=== PATIENT | male | born 1985 | race Caucasian/White ===

== ENCOUNTER → 2017-07-02 16:42 | Outpatient (CLI) | payer MEDICARE, MEDICAID, SELFPAY ==
[2017-07-02 17:07] LABS: Basophils % 0.4 % (0.1-2.0); Eosinophils % 0.9 % (0.1-12.0); Hematocrit 41.2 % (42.0-52.0); Hemoglobin 14.3 g/dL (14.1-18.0); Lymphocytes # 1.4 K/mm3 (0.7-4.5); Mean Corpuscular HGB Conc 34.7 g/dL (31.8-35.4); Mean Corpuscular Hemoglobin 30.7 pg (27.0-31.2); Mean Corpuscular Volume 88.6 fl (80-94); Mean Platelet Volume 7.2 fl (7.4-10.4); Monocytes # 0.3 K/mm3 (0.1-1.0); Monocytes % 5.6 % (1.7-9.3); Neutrophils # 3.4 K/mm3 (1.8-7.8); Neutrophils % 66.1 % (37.0-80.0); Platelet Count 202 K/mm3 (142-424); Red Blood Count 4.66 M/mm3 (4.60-6.20); Red Cell Distribution Width 12.6 % (11.5-17.5); White Blood Count 5.1 K/mm3 (4.8-10.8)
[2017-07-02 19:20] LABS: Alanine Aminotransferase 33 U/L (12-78); Albumin Level 4.2 gm/dL (3.4-5.0); Albumin/Globulin Ratio 1.2 (1.1-1.8); Alkaline Phosphatase 75 U/L (46-116); Anion Gap 12.5 mEq/L (5-15); Aspartate Amino Transferase 24 U/L (15-37); Bilirubin,Total 0.4 mg/dL (0.2-1.0); Blood Urea Nitrogen 8 mg/dL (7-18); Carbon Dioxide 29 mmol/L (21.0-32.0); Chloride 104 mmol/L (98-107); Chol/HDL Ratio 6.6 (1-3.5); Cholesterol 243 mg/dL (140-200); Creatinine,Serum 0.93 mg/dL (0.70-1.30); Estimated Glomerular Filt Rate 95 ml/min (>60); GFR (African American) 115 ML/MIN (>60); Globulin 3.4 gm/dl (1.3-3.2); Glucose 93 mg/dL (74-106); HDL Cholesterol 37 mg/dL (27-67); LDL Cholesterol 163 mg/dL (0-130); Potassium 4.5 mmoL/L (3.5-5.1); Sodium 141 mmol/L (136-145); Total Protein,Serum 7.6 gm/dL (6.4-8.2); Triglycerides 217 mg/dL (30-200); VLDL Cholesterol 43 mg/dL (0-40)
[2017-07-02 19:40] LABS: Amphetamine/Metha Screen,Urine Negative ng/mL (<1000); Barbiturates Screen,Urine Negative ng/mL (<200); Benzodiazepines Screen,Urine Positive ng/mL (200); Cannabinoid Screen,Urine Negative ng/mL (<50); Cocaine Screen,Urine Negative ng/g (<300); Methadone Screen,Urine Negative ng/mL (<300); Opiate Screen,Urine Negative ng/mL (<300); Phencyclidine Screen,Urine Negative ng/mL (<25)
[2017-07-02 19:45] LABS: Thyroid Stimulating Hormone 12.52 uIU/ml (0.358-3.740)
== END ==
PROVIDERS: Visit Provider Nurse Practitioner Psychiatric/Mental Health
DX: F20.0 Paranoid schizophrenia (principal); Z79.899 Other long term (current) drug therapy
CPT/HCPCS: 36415; 80053; 80061; 80305; 84443; 85025

== ENCOUNTER 2019-01-12 15:00 | Outpatient (RCR) | payer OTHER, SELFPAY | END 2019-01-12 15:05 | disposition home or self-care (01) | LOC: PT 15:00 | PROVIDERS: Visit Provider Pediatrics | DX: R29.898 Other symptoms and signs involving the musculoskeletal system (principal) | CPT/HCPCS: 97010; 97014; 97035; 97110; 97140; 97163; G0283 ==

== ENCOUNTER 2020-07-02 15:32 | Emergency (ER) | payer MEDICARE, MEDICAID, SELFPAY ==
[2020-07-02 15:47] VITALS: BP 144/83; PULSE 98; RESP 14; TEMP 37.4; O2SAT 99; BMI 26.6
--- NOTE | 2020-07-02 15:54 | HMH.EDUTC ---
[facility] [place] Clinical Impression: Viral syndrome, Exposure to COVID-19 virus Disposition: Home, Self-Care Condition on Discharge: Good Instructions: Preventing the Spread of Coronavirus Discharge Instructions Additional Instructions: Drink plenty of fluids. Take tylenol for pain or fever. Return if you begin to have difficulty breathing. Follow up with your regular doctor. GO TO THE ER FOR ANY WORSENING SYMPTOMS Prescriptions: Ondansetron [Zofran 4mg ODT] 4 mg PO Q8HP PRN #9 tab.rapdis PRN Reason: Nausea Transmission Status: Received by [facility] #[id number] Referrals: Quyen Jeffrey [Primary Care Provider] - Forms: Work/School Release Time of Disposition: 15:56 Medical Decision Making - Medical Records Medical records reviewed: No: I reviewed the patient's medical records. - Jaylen Inquiry Pt receiving controlled substance: No Vital Signs: 07/02/20 15:47 07/02/20 16:01 Temperature 99.3 F 99.3 F Temperature Source Tympanic Tympanic Pulse Rate 98 H Pulse Rate [Right Brachial] 98 H Respiratory Rate 14 14 Blood Pressure 144/83 H Blood Pressure [Right Arm] 144/83 H Blood Pressure Mean [Right Arm] 103 Blood Pressure Source Automatic Cuff Blood Pressure Source [Right Arm] Automatic Cuff Blood Pressure Position Sitting Blood Pressure Position [Right Arm] Sitting 02 Sat by Pulse Oximetry 99 Oxygen Delivery Method Room Air Room Air Orders (Tests/Meds): ORDERS Category Date Time Status Covid-19 Nasal PCR ([facility]) Routine Lab 07/02/20 15:45 Received [facility] [place] - General Stated complaint: covid test Time Seen by Provider: 07/02/20 15:54 Mode of Arrival: Ambulatory Source of Information: Patient Limitations: No Limitations Description of Symptoms (Recalled from Triage Doc. by RN): Covid test HEENT Symptoms (Recalled from RN notes): No Resp Symptoms (Recalled from RN notes): No Skin Symptoms (Recalled from RN notes): No MS Symptoms (Recalled from RN notes): No Functional Status (Recalled from RN notes): wnl - History of Present Illness Provider Complaint: He states that he was exposed to covid about 3 days ago. He has had some nausea and some chilling, but no other symptoms. - Related Data Home Medications Medication Instructions Recorded Confirmed Buspirone HCl [Buspar 10mg 10 mg PO TID 11/28/17 11/28/17 tablet] Omeprazole [Omeprazole 20mg 20 mg pe PO DAILY 11/28/17 11/28/17 Capsule] Quetiapine Fumarate 600 mg PO DAILY 11/28/17 11/28/17 Trazodone HCl 150 mg PO DAILY 11/28/17 11/28/17 Previous Rx's Medication Instructions Recorded Amoxicillin [Amoxicillin 875MG Tab] 875 mg PO BID #20 tab 01/14/18 Ibuprofen [Ibuprofen 800mg 800 mg PO Q8HP PRN #14 tab 11/11/18 Tablet] Ondansetron [Zofran 4mg ODT] 4 mg PO Q8HP PRN #9 tab.rapdis 07/02/20 Allergies Allergy/AdvReac Type Severity Reaction Status Date / Time acetaminophen [From Tylenol] AdvReac Verified 11/28/17 23:46 - Worker's Comp Is this a Worker's Comp case?: No [facility] History - Hepatitis A Screen Drug use history?: No High risk sexual behaviors?: No History of sexually transmitted infection?: No Currently employed?: No Childcare worker?: No Do you have indoor plumbing?: Yes Do you have electricity?: Yes Attestation statement:: This patient has been screened for Hepatitis A risk factors. I have reviewed the patient's past medical history: Yes Medical History: Denies:: Cancer, Diabetes Mellitus Type 1, Diabetes Mellitus Type 2, Hypertension, MRSA Other Surgeries: Yes: No Previous Surgery Amputation: No Fractures: No - Social History Smoking Status: Never smoker Alcohol Intake: never Occupational Status: unemployed ROS Obtained: Yes All systems reviewed & no additional complaints - Constitutional Constitutional: Reports system reviewed and no additional complaints, except as docu - Eyes Eyes: Reports system reviewed and no additional c
[2020-07-02 16:01] VITALS: BP 144/83; PULSE 98; RESP 14; TEMP 37.4; O2SAT 99
== END 2020-07-02 16:06 | disposition home or self-care (01) ==
PROVIDERS: Emergency Provider Nurse Practitioner Family; PCP Pediatrics
DX: Z20.822 Contact with and (suspected) exposure to COVID-19 (principal); B34.9 Viral infection, unspecified
CPT/HCPCS: 99202; G0463; U0003

== ENCOUNTER 2020-07-12 18:34 | Emergency (ER) | payer MEDICARE, MEDICAID, SELFPAY ==
--- NOTE | 2020-07-12 19:05 | HMH.EDUTC ---
[facility] – [place] Disposition Clinical Impression: Exposure to COVID-19 virus, Strep throat Disposition: Home, Self-Care Condition on Discharge: Good Instructions: DI for Viral Pharyngitis, Preventing the Spread of Coronavirus Discharge Instructions Additional Instructions: Drink plenty of fluids. Take tylenol for pain or fever. Return if you begin to have difficulty breathing. Follow up with your regular doctor. GO TO THE ER FOR ANY WORSENING SYMPTOMS Prescriptions: Ondansetron [Zofran 4mg ODT] 4 mg PO Q8HP PRN #12 tab.rapdis PRN Reason: Nausea Transmission Status: Received by [facility] #[id number] Amoxicillin [Amoxicillin 500mg Tab] 500 mg PO TID 10 Days #30 tab Transmission Status: Received by [facility] # Referrals: Quyen Jeffrey [Primary Care Provider] - Medical Decision Making - Medical Records Medical records reviewed: No: I reviewed the patient's medical records. - Jaylen Inquiry Pt receiving controlled substance: No Vital Signs: 07/12/20 19:08 07/12/20 20:08 Temperature 98.9 F 98.9 F Temperature Source Oral Pulse Rate 79 Pulse Rate [Right] 78 Respiratory Rate 14 16 Blood Pressure 129/75 Blood Pressure [Right Arm] 125/72 Blood Pressure Mean [Right Arm] 89 Blood Pressure Source [Right Arm] Automatic Cuff Blood Pressure Position [Right Arm] Sitting 02 Sat by Pulse Oximetry 100 - Lab Data Lab results reviewed: Yes: I reviewed the patient's lab results. Lab Results 07/12/20 19:48: Strep Scn [facility] Positive A Orders (Tests/Meds): ORDERS Category Date Time Status Covid-19 Nasal PCR ([facility]) Routine Lab 07/12/20 19:00 Received [facility] [place] HPI - General Stated complaint: cOVID tEST Time Seen by Provider: 07/12/20 19:05 - History of Present Illness Provider Complaint: He states that he has had a sore throat since this morning. He was exposed to covid last week. He denies any chest pain or shortness of breath. - Related Data Home Medications Medication Instructions Recorded Confirmed Buspirone HCl [Buspar 10mg 10 mg PO TID 11/28/17 11/28/17 tablet] Omeprazole [Omeprazole 20mg 20 mg pe PO DAILY 11/28/17 11/28/17 Capsule] Quetiapine Fumarate 600 mg PO DAILY 11/28/17 11/28/17 Trazodone HCl 150 mg PO DAILY 11/28/17 11/28/17 Previous Rx's Medication Instructions Recorded Amoxicillin [Amoxicillin 875MG Tab] 875 mg PO BID #20 tab 01/14/18 Ibuprofen [Ibuprofen 800mg 800 mg PO Q8HP PRN #14 tab 11/11/18 Tablet] Ondansetron [Zofran 4mg ODT] 4 mg PO Q8HP PRN #9 tab.rapdis 07/02/20 Amoxicillin [Amoxicillin 500mg Tab] 500 mg PO TID 10 Days #30 tab 07/12/20 Ondansetron [Zofran 4mg ODT] 4 mg PO Q8HP PRN #12 tab.rapdis 07/12/20 Allergies Allergy/AdvReac Type Severity Reaction Status Date / Time acetaminophen [From Tylenol] AdvReac Verified 07/12/20 19:12 [facility] History - Hepatitis A Screen Attestation statement:: This patient has been screened for Hepatitis A risk factors. I have reviewed the patient's past medical history: Yes Medical History: Denies:: Cancer, Diabetes Mellitus Type 1, Diabetes Mellitus Type 2, Hypertension, MRSA Other Surgeries: Yes: No Previous Surgery Amputation: No Fractures: No - Social History Smoking Status: Never smoker Alcohol Intake: never Occupational Status: unemployed ROS Obtained: Yes All systems reviewed & no additional complaints - Constitutional Constitutional: Reports system reviewed and no additional complaints, except as docu - Eyes Eyes: Reports system reviewed and no additional complaints, except as docu - ENT Ears, Nose, Mouth, and Throat: Reports system reviewed and no additional complaints, except as docu - Cardiovascular Cardiovascular: Reports system reviewed and no additional complaints, except as docu - Respiratory Respiratory: Reports system reviewed and no additional complaints, except as docu - Gastrointestinal Gastrointesti
[2020-07-12 19:08] VITALS: BP 125/72; PULSE 78; RESP 14; TEMP 37.2; O2SAT 100; BMI 26.5
[2020-07-12 20:06] LABS: UTC Strep Screen (Rapid) Positive (Negative)
[2020-07-12 20:08] VITALS: BP 129/75; PULSE 79; RESP 16; TEMP 37.2
== END 2020-07-12 20:09 | disposition home or self-care (01) ==
PROVIDERS: Emergency Provider Nurse Practitioner Family; PCP Pediatrics
DX: Z20.822 Contact with and (suspected) exposure to COVID-19 (principal); J02.0 Streptococcal pharyngitis
CPT/HCPCS: G0463; 87880; 99202; U0003

== ENCOUNTER 2020-08-24 16:05 | Emergency (ER) | payer MEDICARE, MEDICAID, SELFPAY ==
[2020-08-24 16:06] VITALS: BP 113/75; PULSE 77; RESP 16; TEMP 37.1; O2SAT 98; BMI 25.8
--- NOTE | 2020-08-24 16:19 | ECG_ITS ---
APPROVED REPORT Exam: Resting ECG HR:56 bpm ECG Measurements Heart Rate 56 AXES SD 146 P 9 QRSd 88 QRS 10 QT 402 T 24 QTc 387 Conclusion Sinus bradycardia Otherwise normal ECG Electronically signed by : Jose E Fink, 08/25/2020 08:16:14
--- NOTE | 2020-08-24 16:20 | XR_ITS ---
PROCEDURE INFORMATION: Exam: XR Chest Exam date and time: 08/24/2020 4:20 PM Age: 35 years old Clinical indication: Shortness of breath; Patient HX: Chest pressure and tightness. Smoker; Additional info: Cough TECHNIQUE: Imaging protocol: XR of the chest. Views: 1 view. COMPARISON: CR XR CHEST AP 11/11/2018 6:24 PM FINDINGS: Airway: The airways are patent. Lungs: Low lung volumes causes crowding of the bronchovascular structures. No acute interstitial or airspace disease. Pleural spaces: There are no pleural effusions present. There is no evidence of pneumothorax. Heart/Mediastinum: Heart is of normal size and morphology. Bones/joints: No acute skeletal abnormality or aggressive osseous lesion. IMPRESSION: Negative for acute thoracic pathology.
--- NOTE | 2020-08-24 16:34 | PC.NURSE ---
patient refuses to wear vitals monitoring devices
--- NOTE | 2020-08-24 16:34 | PC.NURSE ---
Rad at bedside
[2020-08-24 16:53] LABS: Basophils % 0.4 % (0.1-2.0); Eosinophils # 0.1 K/mm3 (0.0-0.4); Eosinophils % 0.7 % (0.1-12.0); Hematocrit 40.2 % (42.0-52.0); Lymphocytes # 1.4 K/mm3 (0.7-4.5); Lymphocytes % 19.6 % (10-50); Mean Corpuscular HGB Conc 34.8 g/dL (31.8-35.4); Mean Corpuscular Hemoglobin 30.8 pg (27.0-31.2); Mean Corpuscular Volume 88.4 fl (80-94); Monocytes # 0.4 K/mm3 (0.1-1.0); Monocytes % 5.8 % (1.7-9.3); Neutrophils # 5.2 K/mm3 (1.8-7.8); Neutrophils % 73.5 % (37.0-80.0); Platelet Count 219 K/mm3 (142-424); Red Blood Count 4.54 M/mm3 (4.60-6.20); Red Cell Distribution Width 13.3 % (11.5-17.5)
[2020-08-24 16:59] LABS: Anion Gap 10.2 mEq/L (5-15); Blood Urea Nitrogen 4 mg/dl (9-20); Carbon Dioxide 28 mmol/L (22.0-30.0); Chloride 102 mmol/L (98-107); Creatinine Clearance Estimated 200 mL/min (50-200); Estimated Glomerular Filt Rate 154 ml/min (>60); GFR (African American) 187 ML/MIN (>60); Glucose 114 mg/dl (74-100); Potassium 3.2 mmoL/L (3.5-5.1); Sodium 137 mmol/L (136-145)
--- NOTE | 2020-08-24 17:08 | HMH.EDANX ---
ED Disposition Clinical Impression: Acute anxiety Disposition: Home, Self-Care Condition on Discharge: Good Instructions: Anxiety Disorders Referrals: Quyen Jeffrey [Primary Care Provider] - - Critical Care Critical Care Time: No Attestation: On 08/24/20, the high probability of a clinically significant, sudden or life threatening deterioration of the following system(s) required my full and direct attention, intervention and personal management. The time I documented below is in addition to time spent performing reported procedures but includes the following listed in this critical care notation. Medical Decision Making - Medical Records Medical records reviewed: Yes: I reviewed the patient's medical records. - Jaylen Inquiry Pt receiving controlled substance: No Vital Signs: 08/24/20 16:06 Temperature 98.7 F Temperature Source Oral Pulse Rate [Radial] 77 Respiratory Rate 16 Blood Pressure [Right Arm] 113/75 Blood Pressure Mean [Right Arm] 87 Blood Pressure Position [Right Arm] Sitting 02 Sat by Pulse Oximetry 98 Oxygen Delivery Method Room Air - Lab Data Lab Results 08/24/20 16:32: WBC 7.0, RBC 4.54 L, Hgb 14.0 L, Hct 40.2 L, MCV 88.4, MCH 30.8, MCHC 34.8, RDW 13.3, Plt Count 219, MPV 7.0 L, Neut % (Auto) 73.5, Lymph % (Auto) 19.6, Kingfisher % (Auto) 5.8, Eos % (Auto) 0.7, Baso % (Auto) 0.4, Neut # (Auto) 5.2, Lymph # (Auto) 1.4, Kingfisher # (Auto) 0.4, Eos # (Auto) 0.1, Baso # (Auto) 0.0 08/24/20 16:32: Sodium 137, Potassium 3.2 L, Chloride 102, Carbon Dioxide 28, Anion Gap 10.2, BUN 4 L, Creatinine 0.60 L, Estimated Creat Clear 200, Estimated GFR 154, Est GFR ( Amer) 187, Glucose 114 H, Calcium 9.0, Troponin I < 0.01 Result diagrams: 08/24/20 16:32 08/24/20 16:32 Orders (Tests/Meds): ORDERS Category Date Time Status Troponin I Q3H Lab 08/24/20 19:30 Ordered Troponin I Q3H Lab 08/24/20 22:30 Ordered - Radiology Data #1 Image(s): Chest Image Reviewed: Yes I reviewed the patient's radiology results, Yes I reviewed the patient's radiology image, Yes I have reviewed radiologist's interpretation Preliminary Findings: Normal/NAD - ECG Data Tracing #1 ECG initial impression date: 08/24/20 ECG initial impression time: 16:36 ECG normal with no acute: arrhythmias, ischemia, conduction abnormalities, chamber hypertrophy Arrhythmias present: sinus bird - Reevaluation(s) Time: 17:41 Reevaluation #1: On reevaluation, patient is feeling much better. Work-up is relatively benign. I do believe patient symptoms secondary anxiety. Patient will need to follow-up with his primary care physician. Given strict return precautions. Verbalized understanding. Medical Decision Narrative: 35-year-old male presented to the emergency department with some anxiety. Patient is also has some chest pain and shortness of breath. Patient is low risk for acute coronary syndrome based on heart score. PERC negative. Work-up initiated. Anxiety HPI - General Chief Complaint: Anxiety Stated Complaint: anxiety attacks Time Seen by Provider: 08/24/20 16:10 Mode of Arrival: Ambulatory Limitations: No Limitations Description of Symptoms (Recalled from ER Triage Doc. by RN): TO ED PER [employer] WITH C/O ANXIETY ISSUES, C/O CHEST TIGHTNESS AND SOB. STATES I WANT MY HEART AND EVERYTHING CHECKED OUT TO MAKE SURE NOTHING ELSE IS WRONG . PT DENIES RADIATION OF PAIN, DENIES NAUSEA, VOMITING, DIAPHORESIS. - History of Present Illness HPI narrative: This is a 35-year-old male presented to the emergency department with chronic anxiety. The patient states that his anxiety has been running fairly high over the last few days. He is concerned because he read somewhere that having anxiety can damage his internal organs. Patient states that he has had some chest discomfort for the last 3 days. Consistent nature. Global. Nonradiating. Associate with some mild shortness of breath. Patient denies any cough hemo
[2020-08-24 17:13] LABS: Troponin I < 0.01 ng/ml (0.00-0.034)
[2020-08-24 17:30] VITALS: BP 143/71; PULSE 83; RESP 16; TEMP 36.7; O2SAT 98
[2020-08-24 18:01] VITALS: BP 123/65; PULSE 77; RESP 16; TEMP 36.6; O2SAT 98
== END 2020-08-24 18:02 | disposition home or self-care (01) ==
PROVIDERS: Emergency Provider Emergency Medicine; PCP Pediatrics
DX: F41.8 Other specified anxiety disorders (principal); R07.9 Chest pain, unspecified
CPT/HCPCS: 71045; 80048; 84484; 85025; 93005; 99282

== ENCOUNTER 2020-11-21 14:12 | Emergency (ER) | payer MEDICARE, MEDICAID, SELFPAY ==
[2020-11-21 14:45] VITALS: BP 123/76; PULSE 69; RESP 20; TEMP 36.6; O2SAT 99; BMI 24.3
--- NOTE | 2020-11-21 15:19 | HMH.EDUTC ---
[facility] [place]: Epigastric pain Disposition: Home, Self-Care Condition on Discharge: Good Instructions: DI for Epigastric Pain Additional Instructions: You have been evaluated for epigastric abdominal pain. Likely due to ulcer disease. Please try omeprazole. Follow-up with your primary care doctor. Avoid spicy food, caffeine, tobacco, eating before bedtime. Follow-up with gastroenterology if needed. Return to the emergency department for any new or worsening symptoms Prescriptions: Dicyclomine HCl [Bentyl 10mg capsule] 10 mg PO QID PRN #12 cap PRN Reason: Cramping Transmission Status: Received by [facility] # Omeprazole [Omeprazole 20mg Capsule] 20 mg PO DAILY #30 cap Transmission Status: Received by [facility] # Referrals: Clyde Mendoza MD [Staff Physician] - Provider,ReferralMD [Primary Care Provider] - Forms: Work/School Release Medical Decision Making - Jaylen Inquiry Pt receiving controlled substance: No Jaylen was queried for this patient: No Vital Signs: 11/21/20 14:45 11/21/20 18:30 Temperature 97.9 F 97.9 F Temperature Source Oral Pulse Rate 71 Pulse Rate [Right Brachial] 69 Respiratory Rate 20 16 Blood Pressure 111/75 Blood Pressure [Right Arm] 123/76 Blood Pressure Mean [Right Arm] 91 Blood Pressure Source [Right Arm] Automatic Cuff Blood Pressure Position [Right Arm] Sitting 02 Sat by Pulse Oximetry 99 Oxygen Delivery Method Room Air Room Air - Lab Data Lab Results 11/21/20 15:28: SARS-CoV-2 (PCR) Not detected, Influenza A Untype (PCR) Not detected, Influenza Type B (PCR) Not detected 11/21/20 16:05: WBC 6.6, RBC 4.97, Hgb 15.5, Hct 45.7, MCV 92.0, MCH 31.1, MCHC 33.8, RDW 12.5, Plt Count 227, MPV 7.7, Neut % (Auto) 72.7, Lymph % (Auto) 21.1, [place] % (Auto) 5.2, Eos % (Auto) 0.5, Baso % (Auto) 0.5, Neut # (Auto) 4.8, Lymph # (Auto) 1.4, [place]t # (Auto) 0.3, Eos # (Auto) 0.0, Baso # (Auto) 0.0 11/21/20 16:05: Sodium 141, Potassium 3.4 L, Chloride 103, Carbon Dioxide 26, Anion Gap 15.4 H, BUN 5 L, Creatinine 0.70, Estimated Creat Clear 162, Estimated GFR 129, Est GFR ( Amer) 156, Glucose 99, Calcium 9.0, Total Bilirubin 1.3, AST 70 H, ALT 25, Alkaline Phosphatase 86, Total Protein 7.5, Albumin 4.6, Globulin 2.9, Albumin/Globulin Ratio 1.6, Lipase 63 Result diagrams: 11/21/20 16:05 11/21/20 16:05 Orders (Tests/Meds): ED MEDICATIONS Discontinued Medications Generic Name Dose Route Start Last Admin Trade Name Freq PRN Reason Stop Dose Admin Iopamidol 75 ml 11/21/20 17:07 11/21/20 17:07 Iopamidol-370 (76%);100ml Bottle IV 11/21/20 17:08 75 ml ONCE ONE Administration Sodium Chloride 10 ml 11/21/20 17:07 11/21/20 17:07 Sodium Chloride 0.9% 10ml Syr (Rad Only) IV 11/21/20 17:08 10 ml ONCE ONE Administration Medical Decision Narrative: Patient reports that he has been having pain in his mid abdomen that has come and gone for the last 10 days but has got worse since yesterday States that he has been wrapping a back brace around his abdomen and it helped at times States that when pain hits it is a 10/10 and feels like someone hit him in the abdomen States that he has lost a lot of weight quickly and not sure if that may have caused it States that he has been having fevers on and off since the pain started and last BM was yesterday States that he also noticed his food tasted weird and didnt taste right was bland so he wanted to get tested for COVID Discussed symptoms with patient and recommended transfer to the ED for further evaluation and examination and patient agreed Called ED and patient was moved to room 11 for further evaluation and testing [facility] [place] General Stated complaint: covid test, wknweess, cough, sob, head, abd rn Time Seen by Provider: 11/21/20 15:19 Mode of Arrival: Ambulatory Source of Information: Patient Limitations: No Limitations Description of Symp
--- NOTE | 2020-11-21 15:28 | PC.NURSE ---
PATIENT SENT TO ER PER Alexis MATTA FOR FURTHER EVALUATION. REPORT GIVEN TO Jr ABEBE RN
[2020-11-21 16:05] LABS: Coronavirus 19, PCR Not Detected (NotDetected); Influenza A, PCR Not Detected (NotDetected); Influenza B, PCR Not Detected (NotDetected)
--- NOTE | 2020-11-21 16:13 | CT_ITS ---
PROCEDURE INFORMATION: Exam: CT Abdomen And Pelvis With Contrast Exam date and time: 11/21/2020 4:13 PM Age: 35 years old Clinical indication: Patient HX: Abdominal pain, nausea/vomiting TECHNIQUE: Imaging protocol: Computed tomography of the abdomen and pelvis with contrast. Radiation optimization: All CT scans at this facility use at least one of these dose optimization techniques: automated exposure control; mA and/or kV adjustment per patient size (includes targeted exams where dose is matched to clinical indication); or iterative reconstruction. Contrast material: ISOVUE; Contrast volume: 75 ml; Contrast route: IV; COMPARISON: ABDPELW CT ABD PELVIS W/ CONTRAST 09/21/2015 3:19 AM FINDINGS: Liver: Normal. No mass. Gallbladder and bile ducts: Normal. No calcified stones. No ductal dilation. Pancreas: Normal. No ductal dilation. Spleen: Normal. No splenomegaly. Adrenal glands: Normal. No mass. Kidneys and ureters: Normal. No hydronephrosis. Stomach and bowel: Unremarkable. No obstruction. No mucosal thickening. Appendix: No evidence of appendicitis. Intraperitoneal space: Unremarkable. No free air. No significant fluid collection. Vasculature: Unremarkable. No abdominal aortic aneurysm. Lymph nodes: Unremarkable. No enlarged lymph nodes. Urinary bladder: Unremarkable as visualized. Reproductive: Unremarkable as visualized. Bones/joints: Unremarkable. No acute fracture. Soft tissues: Unremarkable. IMPRESSION: No acute findings.
[2020-11-21 16:25] LABS: Chloride 103 mmol/L (98-107); Potassium 3.4 mmoL/L (3.5-5.1); Sodium 141 mmol/L (136-145)
[2020-11-21 16:27] LABS: Blood Urea Nitrogen 5 mg/dl (9-20); Creatinine Clearance Estimated 162 mL/min (50-200); Estimated Glomerular Filt Rate 129 ml/min (>60); GFR (African American) 156 ML/MIN (>60)
[2020-11-21 16:28] LABS: Alanine Aminotransferase 25 U/L (12-78); Albumin Level 4.6 g/dl (3.5-5.0); Albumin/Globulin Ratio 1.6 (1.1-1.8); Alkaline Phosphatase 86 U/L (38-126); Anion Gap 15.4 mEq/L (5-15); Aspartate Amino Transferase 70 U/L (17-59); Bilirubin,Total 1.3 mg/dl (0.2-1.3); Carbon Dioxide 26 mmol/L (22.0-30.0); Globulin 2.9 g/dL (1.3-3.2); Glucose 99 mg/dl (74-100); Lipase 63 U/L (23-300); Total Protein,Serum 7.5 g/dl (6.3-8.2)
[2020-11-21 16:35] LABS: Basophils % 0.5 % (0.1-2.0); Eosinophils % 0.5 % (0.1-12.0); Hematocrit 45.7 % (42.0-52.0); Hemoglobin 15.5 g/dL (14.1-18.0); Lymphocytes # 1.4 K/mm3 (0.7-4.5); Lymphocytes % 21.1 % (10-50); Mean Corpuscular HGB Conc 33.8 g/dL (31.8-35.4); Mean Corpuscular Hemoglobin 31.1 pg (27.0-31.2); Mean Platelet Volume 7.7 fl (7.4-10.4); Monocytes # 0.3 K/mm3 (0.1-1.0); Monocytes % 5.2 % (1.7-9.3); Neutrophils # 4.8 K/mm3 (1.8-7.8); Neutrophils % 72.7 % (37.0-80.0); Platelet Count 227 K/mm3 (142-424); Red Blood Count 4.97 M/mm3 (4.60-6.20); Red Cell Distribution Width 12.5 % (11.5-17.5); White Blood Count 6.6 K/mm3 (4.8-10.8)
--- NOTE | 2020-11-21 16:51 | PC.NURSE ---
pt in CT
--- NOTE | 2020-11-21 16:54 | HMH.EDGENADL ---
ED Disposition Clinical Impression: Epigastric pain Disposition: Home, Self-Care Condition on Discharge: Good Instructions: DI for Epigastric Pain Additional Instructions: You have been evaluated for epigastric abdominal pain. Likely due to ulcer disease. Please try omeprazole. Follow-up with your primary care doctor. Avoid spicy food, caffeine, tobacco, eating before bedtime. Follow-up with gastroenterology if needed. Return to the emergency department for any new or worsening symptoms Prescriptions: Dicyclomine HCl [Bentyl 10mg capsule] 10 mg PO QID PRN #12 cap PRN Reason: Cramping Transmission Status: Pending to [facility] #[id number] Omeprazole [Omeprazole 20mg Capsule] 20 mg PO DAILY #30 cap Transmission Status: Received by [facility] # Referrals: Provider,MD Vivian [Primary Care Provider] - Clyde Mendoza MD [Staff Physician] - Time of Disposition: 17:10 - Critical Care Critical Care Time: No Attestation: On 11/21/20, the high probability of a clinically significant, sudden or life threatening deterioration of the following system(s) required my full and direct attention, intervention and personal management. The time I documented below is in addition to time spent performing reported procedures but includes the following listed in this critical care notation. Medical Decision Making - Medical Records Medical records reviewed: Yes: I reviewed the patient's medical records. - Jaylen Inquiry Pt receiving controlled substance: No Vital Signs: 11/21/20 14:45 Temperature 97.9 F Temperature Source Oral Pulse Rate [Right Brachial] 69 Respiratory Rate 20 Blood Pressure [Right Arm] 123/76 Blood Pressure Mean [Right Arm] 91 Blood Pressure Source [Right Arm] Automatic Cuff Blood Pressure Position [Right Arm] Sitting 02 Sat by Pulse Oximetry 99 Oxygen Delivery Method Room Air - Lab Data Lab Results 11/21/20 15:28: SARS-CoV-2 (PCR) Not detected, Influenza A Untype (PCR) Not detected, Influenza Type B (PCR) Not detected 11/21/20 16:05: WBC 6.6, RBC 4.97, Hgb 15.5, Hct 45.7, MCV 92.0, MCH 31.1, MCHC 33.8, RDW 12.5, Plt Count 227, MPV 7.7, Neut % (Auto) 72.7, Lymph % (Auto) 21.1, Burnett % (Auto) 5.2, Eos % (Auto) 0.5, Baso % (Auto) 0.5, Neut # (Auto) 4.8, Lymph # (Auto) 1.4, Burnett # (Auto) 0.3, Eos # (Auto) 0.0, Baso # (Auto) 0.0 11/21/20 16:05: Sodium 141, Potassium 3.4 L, Chloride 103, Carbon Dioxide 26, Anion Gap 15.4 H, BUN 5 L, Creatinine 0.70, Estimated Creat Clear 162, Estimated GFR 129, Est GFR ( Amer) 156, Glucose 99, Calcium 9.0, Total Bilirubin 1.3, AST 70 H, ALT 25, Alkaline Phosphatase 86, Total Protein 7.5, Albumin 4.6, Globulin 2.9, Albumin/Globulin Ratio 1.6, Lipase 63 Result diagrams: 11/21/20 16:05 11/21/20 16:05 Orders (Tests/Meds): ED MEDICATIONS Discontinued Medications Generic Name Dose Route Start Last Admin Trade Name Freq PRN Reason Stop Dose Admin Iopamidol 75 ml 11/21/20 17:07 11/21/20 17:07 Iopamidol-370 (76%);100ml Bottle IV 11/21/20 17:08 75 ml ONCE ONE Administration Sodium Chloride 10 ml 11/21/20 17:07 11/21/20 17:07 Sodium Chloride 0.9% 10ml Syr (Rad Only) IV 11/21/20 17:08 10 ml ONCE ONE Administration Medical Decision Narrative: In summary this is a 35-year-old male presenting to the emergency department with epigastric abdominal pain. Patient clinically stable on arrival. Vital signs within normal limits. Differential diagnoses include pancreatitis, peptic ulcer, duodenal ulcer, biliary tract pathology, constipation, colitis. Will obtain CBC, CMP, lipase, CT scan of the abdomen and pelvis. Initial laboratory results are reassuring. No leukocytosis. No evidence of biliary tract obstruction. Lipase within normal limits. CT scan of the abdomen and pelvis shows no acute abnormality. Overall presentation is most concerning for peptic ulcer disease and atypical epigastric pain. Patient counseled on
[2020-11-21 18:30] VITALS: BP 111/75; PULSE 71; RESP 16; TEMP 36.6; O2SAT 99
== END 2020-11-21 18:31 | disposition home or self-care (01) ==
LOC: UTC 14:19 → ER 15:31
PROVIDERS: Nurse Practitioner; Emergency Provider Emergency Medicine
DX: R10.13 Epigastric pain (principal); Z20.822 Contact with and (suspected) exposure to COVID-19; F33.1 Major depressive disorder, recurrent, moderate
CPT/HCPCS: 74177; 80053; 83690; 85025; 99282; Q9967; U0003

== ENCOUNTER 2020-12-13 11:56 | Emergency (ER) | payer MEDICARE, MEDICAID, SELFPAY ==
[2020-12-13 11:58] VITALS: BP 109/70; PULSE 76; RESP 20; TEMP 36.7; O2SAT 100; BMI 23.6
--- NOTE | 2020-12-13 12:17 | HMH.EDGENADL ---
ED Disposition Clinical Impression: Hemorrhoid Qualifiers: Hemorrhoid type: unspecified Qualified Code(s): K64.9 - Unspecified hemorrhoids Disposition: Home, Self-Care Condition on Discharge: Good Instructions: DI for Hemorrhoids Additional Instructions: use meds and call pcp for follow up Prescriptions: Hydrocortisone [Anusol-Hc] 30 gm TP BID #1 gm Transmission Status: Pending to [facility] #[id number] Referrals: Quyen Jeffrey [Primary Care Provider] - Yvan Head MD [Staff Physician] - - Critical Care Critical Care Time: No Attestation: On 12/13/20, the high probability of a clinically significant, sudden or life threatening deterioration of the following system(s) required my full and direct attention, intervention and personal management. The time I documented below is in addition to time spent performing reported procedures but includes the following listed in this critical care notation. Medical Decision Making - Medical Records Medical records reviewed: Yes: I reviewed the patient's medical records. - Jaylen Inquiry Pt receiving controlled substance: No Vital Signs: 12/13/20 11:58 Temperature 98.1 F Temperature Source Oral Pulse Rate [Right Radial] 76 Respiratory Rate 20 Blood Pressure [Right Arm] 109/70 L Blood Pressure Mean [Right Arm] 83 Blood Pressure Source [Right Arm] Automatic Cuff Blood Pressure Position [Right Arm] Sitting 02 Sat by Pulse Oximetry 100 Oxygen Delivery Method Room Air Medical Decision Narrative: please call pcp and surg for follow up General Adult HPI - General Chief complaint: PAIN Stated complaint: anal lump Time Seen by Provider: 12/13/20 12:22 Mode of Arrival: Ambulatory Source of Information: Patient, Medical Record Limitations: No Limitations Description of Symptoms (Recalled from ER Triage Doc. by RN): Pt c/o area on anus. Possible hemorrhoid. Pt reports hx of gastric ulcers and states that he is due to have a scope and a colonoscopy - History of Present Illness HPI narrative: over the last day has area on rectum - no bleeding - Onset (ago): day(s) Location: buttocks Severity: moderate Associated symptoms: denies other symptoms Treatments prior to arrival: none - Related Data Home Medications Medication Instructions Recorded Confirmed Buspirone HCl [Buspar 10mg 10 mg PO TID 11/28/17 08/24/20 tablet] quetiapine 50 mg tablet 50 mg PO DAILY tab 08/08/20 08/24/20 Previous Rx's Medication Instructions Recorded Dicyclomine HCl [Bentyl 10mg 10 mg PO QID PRN #12 cap 11/21/20 capsule] Omeprazole [Omeprazole 20mg 20 mg PO DAILY #30 cap 11/21/20 Capsule] Hydrocortisone [Anusol-Hc] 30 gm TP BID #1 gm 12/13/20 Allergies Allergy/AdvReac Type Severity Reaction Status Date / Time acetaminophen [From Tylenol] AdvReac Verified 08/08/20 13:05 [facility] History - Hepatitis A Screen Drug use history?: No High risk sexual behaviors?: No History of sexually transmitted infection?: No Currently employed?: No Childcare worker?: No Do you have indoor plumbing?: Yes Do you have electricity?: Yes Attestation statement:: This patient has been screened for Hepatitis A risk factors. I have reviewed the patient's past medical history: Yes Medical History: Reports:: Depression Denies:: Cancer, Diabetes Mellitus Type 1, Diabetes Mellitus Type 2, Hypertension, MRSA Other Surgeries: Yes: No Previous Surgery Amputation: No Fractures: No - Social History Smoking Status: Never smoker Alcohol Intake: never Occupational Status: other - Psychiatric History Pschychiatric History:: Reports:: Depression Family Hx:: Hypertension ROS Obtained: Yes All systems reviewed & no additional complaints - Constitutional Constitutional: Denies fever(s) - Eyes Eyes: Denies change in vision - ENT Ears, Nose, Mouth, and Throat: Denies sore throat - Cardiovascular Cardiovascular: Denies chest pain - Respiratory Respir
[2020-12-13 12:55] VITALS: BP 129/68; PULSE 79; RESP 16; TEMP 36.8; O2SAT 97
== END 2020-12-13 12:56 | disposition home or self-care (01) ==
PROVIDERS: Emergency Provider Emergency Medicine; PCP Pediatrics
DX: K64.9 Unspecified hemorrhoids (principal); Z87.11 Personal history of peptic ulcer disease; Z88.1 Allergy status to other antibiotic agents; Z79.899 Other long term (current) drug therapy
CPT/HCPCS: 99281

== ENCOUNTER 2021-01-13 17:10 | Emergency (ER) | payer MEDICARE, MEDICAID, SELFPAY ==
[2021-01-13 17:54] VITALS: BP 101/69; PULSE 74; RESP 18; TEMP 36.8; O2SAT 99; BMI 20.3
[2021-01-13 18:48] LABS: Coronavirus 19, PCR Not Detected (NotDetected); Influenza A, PCR Not Detected (NotDetected); Influenza B, PCR Not Detected (NotDetected)
--- NOTE | 2021-01-13 19:15 | XR_ITS ---
PROCEDURE INFORMATION: Exam: XR Chest Exam date and time: 01/13/2021 7:15 PM Age: 35 years old Clinical indication: Cough and fever; Patient HX: Cough, congestion, fever. Patient states he is here to be tested for covid, rsv, etc. TECHNIQUE: Imaging protocol: XR of the chest. Views: 1 view. COMPARISON: CR XR CHEST PORTABLE 08/24/2020 4:36 PM FINDINGS: Lungs: Normal. Pleural spaces: Unremarkable. No pleural effusion. No pneumothorax. Heart/Mediastinum: Normal. Bones/joints: No acute abnormality. IMPRESSION: No acute findings.
--- NOTE | 2021-01-13 19:17 | HMH.EDGENADL ---
ED Disposition Condition on Discharge: Good - Critical Care Critical Care Time: No <Elmer Lux - Last Filed: 01/13/21 20:04> Condition on Discharge: Good - Critical Care Critical Care Time: No <Babar Grier - Last Filed: 01/13/21 23:10> Clinical Impression: Cough Disposition: Home, Self-Care Instructions: Cough, DI for Acute Bronchitis Additional Instructions: Please follow-up with your primary care physician within the next few days if you do not improve. Department if you feel worse in any way. I did recommend that you take [id number] Tylenol and or ibuprofen for your symptoms. Referrals: Quyen Jeffrey [Primary Care Provider] - Attestation: On 01/13/21, the high probability of a clinically significant, sudden or life threatening deterioration of the following system(s) required my full and direct attention, intervention and personal management. The time I documented below is in addition to time spent performing reported procedures but includes the following listed in this critical care notation. Medical Decision Making - Medical Records Medical records reviewed: Yes: I reviewed the patient's medical records. - Jaylen Barrera Pt receiving controlled substance: No <Elmer Lux - Last Filed: 01/13/21 20:04> - Medical Records Medical records reviewed: Yes: I reviewed the patient's medical records. - Jaylen Barrera Pt receiving controlled substance: No - Lab Data Result diagrams: 01/13/21 21:27 01/13/21 21:00 <Babar Grier - Last Filed: 01/13/21 23:10> Vital Signs: 01/13/21 17:54 Temperature 98.2 F Temperature Source Oral Pulse Rate [Left Radial] 74 Respiratory Rate 18 Blood Pressure [Right Arm] 101/69 L Blood Pressure Mean [Right Arm] 79 Blood Pressure Source [Right Arm] Automatic Cuff Blood Pressure Position [Right Arm] Sitting 02 Sat by Pulse Oximetry 99 Oxygen Delivery Method Room Air - Lab Data Lab Results 01/13/21 18:00: SARS-CoV-2 (PCR) Not detected, Influenza A Untype (PCR) Not detected, Influenza Type B (PCR) Not detected 01/13/21 21:00: Sodium 138, Potassium 3.6, Chloride 105, Carbon Dioxide 28, Anion Gap 8.6, BUN 6 L, Creatinine 0.60 L, Estimated Creat Clear 167, Estimated GFR 154, Est GFR ( Amer) 187, Glucose 100, Calcium 8.9, Total Bilirubin 0.6, AST 31, ALT 18, Alkaline Phosphatase 49, Total Protein 6.7, Albumin 4.0, Globulin 2.7, Albumin/Globulin Ratio 1.5 01/13/21 21:27: WBC 4.3 L, RBC 4.58 L, Hgb 14.3, Hct 41.9 L, MCV 91.4, MCH 31.2, MCHC 34.1, RDW 13.4, Plt Count 198, MPV 8.7, Neut % (Auto) 57.4, Lymph % (Auto) 29.2, [place] % (Auto) 11.3 H, Eos % (Auto) 1.5, Baso % (Auto) 0.7, Neut # (Auto) 2.5, Lymph # (Auto) 1.3, [place] # (Auto) 0.5, Eos # (Auto) 0.1, Baso # (Auto) 0.0 Orders (Tests/Meds): ED MEDICATIONS Discontinued Medications Generic Name Dose Route Start Last Admin Trade Name Jayshree PRN Reason Stop Dose Admin Ketorolac Tromethamine 30 mg 01/13/21 22:01 01/13/21 22:06 Ketorolac 30mg/Ml Vial IV 01/13/21 22:02 30 mg ONCE ONE Administration ORDERS Category Date Time Status Hepatitis Panel (4) Stat Lab 01/13/21 21:00 Received RSV Ag, EIA Stat Lab 01/13/21 21:00 Received Medical Decision Narrative: 35yo M presents the emergency department secondary to cough, congestion, fever. Patient no acute distress on initial evaluation is satting 100% room air he reports he feels confused but is able to answer all questions in detail without difficulty. Physical exam is benign. Patient then states he touched some blood and is concerned he might have hepatitis. Request a hepatitis panel be collected. I informed him we could send the blood off but it was not a rapid result and would not be back for several days. He voiced understanding. Labs pending at this time. Case signed over to oncoming physician at shift change. (Elmer Lux) The patient's laboratory work-up did not reveal any life-threatening or dangerous causes
[2021-01-13 21:26] LABS: Alanine Aminotransferase 18 U/L (12-78); Albumin/Globulin Ratio 1.5 (1.1-1.8); Alkaline Phosphatase 49 U/L (38-126); Anion Gap 8.6 mEq/L (5-15); Aspartate Amino Transferase 31 U/L (17-59); Bilirubin,Total 0.6 mg/dl (0.2-1.3); Blood Urea Nitrogen 6 mg/dl (9-20); Calcium 8.9 mg/dl (8.4-10.2); Carbon Dioxide 28 mmol/L (22.0-30.0); Chloride 105 mmol/L (98-107); Creatinine Clearance Estimated 167 mL/min (50-200); Estimated Glomerular Filt Rate 154 ml/min (>60); GFR (African American) 187 ML/MIN (>60); Globulin 2.7 g/dL (1.3-3.2); Glucose 100 mg/dl (74-100); Potassium 3.6 mmoL/L (3.5-5.1); Sodium 138 mmol/L (136-145); Total Protein,Serum 6.7 g/dl (6.3-8.2)
[2021-01-13 21:35] LABS: Basophils % 0.7 % (0.1-2.0); Eosinophils # 0.1 K/mm3 (0.0-0.4); Eosinophils % 1.5 % (0.1-12.0); Hematocrit 41.9 % (42.0-52.0); Hemoglobin 14.3 g/dL (14.1-18.0); Lymphocytes # 1.3 K/mm3 (0.7-4.5); Lymphocytes % 29.2 % (10-50); Mean Corpuscular HGB Conc 34.1 g/dL (31.8-35.4); Mean Corpuscular Hemoglobin 31.2 pg (27.0-31.2); Mean Corpuscular Volume 91.4 fl (80-94); Mean Platelet Volume 8.7 fl (7.4-10.4); Monocytes # 0.5 K/mm3 (0.1-1.0); Monocytes % 11.3 % (1.7-9.3); Neutrophils # 2.5 K/mm3 (1.8-7.8); Neutrophils % 57.4 % (37.0-80.0); Platelet Count 198 K/mm3 (142-424); Red Blood Count 4.58 M/mm3 (4.60-6.20); Red Cell Distribution Width 13.4 % (11.5-17.5); White Blood Count 4.3 K/mm3 (4.8-10.8)
[2021-01-13 23:17] VITALS: BP 105/71; PULSE 73; RESP 16; TEMP 37; O2SAT 98
[2021-01-15 11:12] LABS: Hep A Ab, IgM Negative (Negative); Hepatitis B Core Antibody IgM Negative (Negative); Hepatitis B Surface Antigen Negative (Negative); Hepatitis C Antibody <0.1 s/co ratio (0.0-0.9)
== END 2021-01-13 23:20 | disposition home or self-care (01) ==
LOC: UTC 17:14 → ER 17:43
PROVIDERS: Emergency Provider Family Medicine; PCP Pediatrics
DX: R05.1 Acute cough (principal); R50.9 Fever, unspecified; R53.1 Weakness; F33.1 Major depressive disorder, recurrent, moderate; Z20.822 Contact with and (suspected) exposure to COVID-19
CPT/HCPCS: 71045; 80053; 80074; 85025; 87807; 99283; C9803; U0003; U0005

== ENCOUNTER 2021-01-17 07:31 | Emergency (ER) | payer MEDICARE, MEDICAID, SELFPAY ==
[2021-01-17 07:43] VITALS: BP 118/62; PULSE 79; RESP 17; O2SAT 98
[2021-01-17 07:56] VITALS: BP 118/62; PULSE 83; RESP 17; TEMP 36.8; O2SAT 96; BMI 22.9
--- NOTE | 2021-01-17 07:59 | PC.NURSE ---
Respiratory notified on the need for duoneb
[2021-01-17 08:00] VITALS: BP 118/63; PULSE 61; RESP 14; O2SAT 97
--- NOTE | 2021-01-17 08:09 | HMH.EDGENADL ---
ED Disposition Clinical Impression: RSV bronchitis Disposition: Home, Self-Care Condition on Discharge: Good Instructions: DI for Respiratory Syncytial Virus -- Adults, How to Use a Nebulizer Additional Instructions: Use nebulizer with DuoNeb treatments 4 times a day as needed for shortness of breath/wheezing. Follow-up with primary care provider, call for appointment. Prescriptions: Nebulizer [Altera Nebulizer] 1 each MC QIDP PRN #1 each PRN Reason: Shortness Of Breath Transmission Status: Pending to [facility] # Ipratropium/Albuterol Sulfate [Duoneb 3mL neb] 3 ml IH QIDP PRN #30 ml PRN Reason: Shortness Of Breath Transmission Status: Pending to [facility] # Referrals: Quyen Jeffrey [Primary Care Provider] - - Critical Care Critical Care Time: No Attestation: On 01/17/21, the high probability of a clinically significant, sudden or life threatening deterioration of the following system(s) required my full and direct attention, intervention and personal management. The time I documented below is in addition to time spent performing reported procedures but includes the following listed in this critical care notation. Medical Decision Making - Jaylen Inquiry Pt receiving controlled substance: No Vital Signs: 01/17/21 07:56 Temperature 98.3 F Temperature Source Oral Pulse Rate [Right Radial] 83 Respiratory Rate 17 Blood Pressure [Right Arm] 118/62 Blood Pressure Mean [Right Arm] 80 Blood Pressure Source [Right Arm] Automatic Cuff Blood Pressure Position [Right Arm] Supine 02 Sat by Pulse Oximetry 96 Oxygen Delivery Method Room Air Orders (Tests/Meds): ED MEDICATIONS Discontinued Medications Generic Name Dose Route Start Last Admin Trade Name Freq PRN Reason Stop Dose Admin Albuterol/Ipratropium 3 ml 01/17/21 08:05 01/17/21 08:10 Ipratropium/Albuterol 3 Ml Neb IH 01/17/21 08:06 3 ml ONCE ONE Administration Medical Decision Narrative: Patient had hand-held nebulizer treatment in the emergency department prior to my arrival. States he notices some improvement. No wheezing on exam. Pulse ox 99%. I feel he can be discharged. General Adult HPI - General Chief complaint: Shortness of Breath/Dyspnea Stated complaint: weakness, cough, runny nose, h/a Time Seen by Provider: 01/17/21 08:09 Mode of Arrival: Ambulatory Limitations: No Limitations Description of Symptoms (Recalled from ER Triage Doc. by RN): Pt stated that he tested positive for RSV, he feels like hes SOB when he walks and talks. He states that he doesn't have any other symptoms. - History of Present Illness HPI narrative: Complains of shortness of breath. States that he wants a breathing treatment and wants a prescription for nebulizer to be used at home. States that he used a friend's inhaler all night long and it did not help, therefore he wants a nebulizer instead of a metered-dose inhaler. He was in the emergency department here on 01/13/2021 for cough and URI symptoms. Negative chest x-ray. Negative Covid and flu test. Positive RSV test. He has a persisting cough. He does not know whether he has had a fever. He does not know whether he is wheezing. - Related Data Home Medications Medication Instructions Recorded Confirmed Buspirone HCl [Buspar 10mg 10 mg PO TID 11/28/17 08/24/20 tablet] quetiapine 50 mg tablet 50 mg PO DAILY tab 08/08/20 08/24/20 Previous Rx's Medication Instructions Recorded Dicyclomine HCl [Bentyl 10mg 10 mg PO QID PRN #12 cap 11/21/20 capsule] Omeprazole [Omeprazole 20mg 20 mg PO DAILY #30 cap 11/21/20 Capsule] Hydrocortisone [Anusol-Hc] 30 gm TP BID #1 gm 12/13/20 Ipratropium/Albuterol Sulfate 3 ml IH QIDP PRN #30 ml 01/17/21 [Duoneb 3mL neb] Nebulizer [Altera Nebulizer] 1 each MC QIDP PRN #1 each 01/17/21 Allergies Allergy/AdvReac Type Severity Reaction Status Date / Time acetaminophen [From [facility]ij[facility]
--- NOTE | 2021-01-17 08:14 | PC.NURSE ---
Dr. Gilliland with pt
[2021-01-17 08:31] VITALS: BP 118/63; PULSE 61; RESP 14; TEMP 36.8; O2SAT 97
== END 2021-01-17 08:31 | disposition home or self-care (01) ==
PROVIDERS: Emergency Provider Emergency Medicine; PCP Pediatrics
DX: J21.0 Acute bronchiolitis due to respiratory syncytial virus (principal); F33.1 Major depressive disorder, recurrent, moderate
CPT/HCPCS: 99281

== ENCOUNTER → 2021-02-15 19:17 | Outpatient (CLI) | payer MEDICARE, MEDICAID, SELFPAY | PROVIDERS: PCP Pediatrics; Visit Provider Nurse Practitioner Family | DX: U07.1 COVID-19 (principal) | CPT/HCPCS: C9803; U0003; U0005 ==

== ENCOUNTER → 2021-02-23 14:00 | Outpatient (CLI) | payer MEDICARE, MEDICAID, SELFPAY | PROVIDERS: PCP Pediatrics; Visit Provider Nurse Practitioner | DX: U07.1 COVID-19 (principal) | CPT/HCPCS: C9803; U0003; U0005 ==

== ENCOUNTER 2021-04-10 14:40 | Emergency (ER) | payer MEDICARE, MEDICAID, SELFPAY ==
[2021-04-10 16:25] VITALS: BP 0/0; PULSE 0; RESP 0; TEMP -17.7; TEMP 0
== END 2021-04-10 16:27 | disposition left against medical advice (07) ==
LOC: UTC 14:44
PROVIDERS: Emergency Provider Nurse Practitioner; PCP Pediatrics
DX: Z53.21 Procedure and treatment not carried out due to patient leaving prior to being seen by health care provider (principal)

== ENCOUNTER → 2021-04-22 14:58 | Outpatient (CLI) | payer MEDICARE, MEDICAID, SELFPAY | PROVIDERS: Visit Provider Nurse Practitioner | DX: Z20.822 Contact with and (suspected) exposure to COVID-19 (principal) | CPT/HCPCS: C9803; U0003; U0005 ==

== ENCOUNTER 2021-05-16 15:49 | Emergency (ER) | payer MEDICARE, MEDICAID, SELFPAY ==
[2021-05-16 15:50] VITALS: BP 124/85; PULSE 78; RESP 16; TEMP 37.1; O2SAT 98; BMI 25.4
--- NOTE | 2021-05-16 16:11 | PC.NURSE ---
ED MD at bedside
[2021-05-16 16:15] LABS: Microscopic, Urine URINE MICROSCOPIC (MICROSCOPIC)
[2021-05-16 16:27] LABS: Appearance,Urine CLEAR (Clear); Bilirubin,Urine Negative (Negative); Blood, Urine Negative (Negative); Color,Urine YELLOW (Yellow); Glucose,Urine (UA) Negative (Negative); Ketones,Urine Negative (Negative); Leukocyte Esterase,Urine Negative (Negative); Nitrate,Urine Negative (Negative); PH,Urine 7.5 (5.0-8.5); Protein,Urine Negative (Negative); Urobilinogen,Urine 0.2 EU/dl (0.2)
[2021-05-16 16:40] LABS: Bacteria,Urine Trace /lpf; Squamous Epithelial Cell,Urine Occasional #/hpf (0-5); WBC,Urine Occasional #/hpf (0-3)
--- NOTE | 2021-05-16 16:49 | HMH.EDABDPAI ---
ED Disposition Clinical Impression: Dyspepsia Disposition: Home, Self-Care Condition on Discharge: Good Instructions: GERD Diet Prescriptions: Famotidine [Pepcid 20mg Tablet] 20 mg PO DAILY #10 tab Transmission Status: Pending to [facility] #[id number] Referrals: Quyen Jeffrey [Primary Care Provider] - - Critical Care Critical Care Time: No Attestation: On 05/16/21, the high probability of a clinically significant, sudden or life threatening deterioration of the following system(s) required my full and direct attention, intervention and personal management. The time I documented below is in addition to time spent performing reported procedures but includes the following listed in this critical care notation. Medical Decision Making - Medical Records Medical records reviewed: Yes: I reviewed the patient's medical records. - Jaylen Inquiry Pt receiving controlled substance: No Vital Signs: 05/16/21 15:50 Temperature 98.8 F Temperature Source Oral Pulse Rate [Radial] 78 Respiratory Rate 16 Blood Pressure [Right Arm] 124/85 Blood Pressure Mean [Right Arm] 98 Blood Pressure Position [Right Arm] Sitting 02 Sat by Pulse Oximetry 98 Oxygen Delivery Method Room Air - Lab Data Lab Results 05/16/21 16:00: Urine Color Yellow, Urine Appearance Clear, Urine pH 7.5, Ur Specific [place] 1.020, Urine Protein Negative, Urine Glucose (UA) Negative, Urine Ketones Negative, Urine Blood Negative, Urine Nitrate Negative, Urine Bilirubin Negative, Urine Urobilinogen 0.2, Ur Leukocyte Esterase Negative, Urine RBC None, Urine WBC Occasional, Ur Squamous Epith Cells Occasional, Urine Bacteria Trace 05/16/21 16:31: WBC 5.8, RBC 4.93, Hgb 15.4, Hct 45.3, MCV 91.9, MCH 31.3 H, MCHC 34.0, RDW 14.0, Plt Count 246, MPV 7.8, Neut % (Auto) 68.5, Lymph % (Auto) 21.9, [place] % (Auto) 5.6, Eos % (Auto) 0.5, Baso % (Auto) 3.6 H, Neut # (Auto) 4.0, Lymph # (Auto) 1.3, [place] # (Auto) 0.3, Eos # (Auto) 0.0, Baso # (Auto) 0.2 05/16/21 16:31: Sodium 139, Potassium 3.8, Chloride 104, Carbon Dioxide 27, Anion Gap 11.8, BUN 9, Creatinine 0.90, Estimated Creat Clear 130, Estimated GFR 96, Est GFR ( Amer) 116, Glucose 104 H, Calcium 9.3, Total Bilirubin 1.3, AST 26, ALT 17, Alkaline Phosphatase 41, Total Protein 7.3, Albumin 4.6, Globulin 2.7, Albumin/Globulin Ratio 1.7 05/16/21 16:31: Lipase 62 Result diagrams: 05/16/21 16:31 05/16/21 16:31 Orders (Tests/Meds): ED MEDICATIONS Discontinued Medications Generic Name Dose Route Start Last Admin Trade Name Freq PRN Reason Stop Dose Admin Al Hydrox/Mg Hydrox/Simethicone 30 ml 05/16/21 16:15 05/16/21 16:45 Aluminum/Magnesium/Simethicone 30ml Udc PO 05/16/21 16:16 Not Given ONCE ONE Belladonna Alkaloids 60 ml 05/16/21 16:28 05/16/21 16:28 Gi Cocktail 60ml Udc PO 05/16/21 16:29 60 ml ONCE ONE Administration Diphenhydramine HCl 25 mg 05/16/21 16:15 05/16/21 16:26 Diphenhydramine 25mg Capsule PO 05/16/21 16:16 25 mg ONCE ONE Administration Lidocaine HCl 15 ml 05/16/21 16:15 05/16/21 16:45 Lidocaine Viscous 100ml Bottle PO 05/16/21 16:16 Not Given ONCE ONE - Reevaluation(s) Time: 17:19 Reevaluation #1: On reevaluation, patient is feeling better. Pain-free. Repeat abdominal exam is benign. Patient needs follow-up with PCP. Given strict return precautions. Verbalized understanding. Medical Decision Narrative: 36-year-old male presenting with some epigastric discomfort. Patient symptoms are consistent with dyspepsia. No evidence of acute abdomen. Work-up initiated. Abdominal Pain HPI - General Chief Complaint: Abdominal Pain Stated Complaint: abd pain Time Seen by Provider: 05/16/21 15:55 Mode of Arrival: Ambulatory Limitations: No Limitations Description of Symptoms (Recalled from ER Triage Doc. by RN): TO ED PER PVT CAR WITH C/O UPPER ABD PAIN X 2 DAYS. PT STATES HE HAS A HX OF SAME AND DX WITH [facility] AND IS OUT OF H
[2021-05-16 16:52] LABS: Lipase 62 U/L (23-300)
[2021-05-16 16:55] LABS: Alanine Aminotransferase 17 U/L (12-78); Albumin Level 4.6 g/dl (3.5-5.0); Albumin/Globulin Ratio 1.7 (1.1-1.8); Alkaline Phosphatase 41 U/L (38-126); Aspartate Amino Transferase 26 U/L (17-59); Bilirubin,Total 1.3 mg/dl (0.2-1.3); Blood Urea Nitrogen 9 mg/dl (9-20); Calcium 9.3 mg/dl (8.4-10.2); Carbon Dioxide 27 mmol/L (22.0-30.0); Creatinine Clearance Estimated 130 mL/min (50-200); Estimated Glomerular Filt Rate 96 ml/min (>60); GFR (African American) 116 ML/MIN (>60); Globulin 2.7 g/dL (1.3-3.2); Glucose 104 mg/dl (74-100); Potassium 3.8 mmoL/L (3.5-5.1); Sodium 139 mmol/L (136-145); Total Protein,Serum 7.3 g/dl (6.3-8.2)
[2021-05-16 17:04] LABS: Anion Gap 11.8 mEq/L (5-15); Chloride 104 mmol/L (98-107)
[2021-05-16 17:10] LABS: Basophils # 0.2 K/mm3 (0-0.2); Basophils % 3.6 % (0.1-2.0); Eosinophils % 0.5 % (0.1-12.0); Hematocrit 45.3 % (42.0-52.0); Hemoglobin 15.4 g/dL (14.1-18.0); Lymphocytes # 1.3 K/mm3 (0.7-4.5); Lymphocytes % 21.9 % (10-50); Mean Corpuscular Hemoglobin 31.3 pg (27.0-31.2); Mean Corpuscular Volume 91.9 fl (80-94); Mean Platelet Volume 7.8 fl (7.4-10.4); Monocytes # 0.3 K/mm3 (0.1-1.0); Monocytes % 5.6 % (1.7-9.3); Neutrophils % 68.5 % (37.0-80.0); Platelet Count 246 K/mm3 (142-424); Red Blood Count 4.93 M/mm3 (4.60-6.20); White Blood Count 5.8 K/mm3 (4.8-10.8)
[2021-05-16 17:31] VITALS: BP 122/68; PULSE 78; RESP 16; TEMP 36.6; O2SAT 98
== END 2021-05-16 17:33 | disposition home or self-care (01) ==
PROVIDERS: Emergency Provider Emergency Medicine; PCP Pediatrics
DX: R10.13 Epigastric pain (principal); R11.0 Nausea; K21.9 Gastro-esophageal reflux disease without esophagitis; F32.A Depression, unspecified; Z79.899 Other long term (current) drug therapy; Z88.6 Allergy status to analgesic agent
CPT/HCPCS: 80053; 81001; 83690; 85025; 99283

== ENCOUNTER 2022-06-14 18:52 | Emergency (ER) | payer MEDICARE, MEDICAID, SELFPAY ==
[2022-06-14 19:24] VITALS: BP 133/89; PULSE 65; RESP 16; TEMP 36.9; O2SAT 99; BMI 26.6
--- NOTE | 2022-06-14 19:35 | CT_ITS ---
PROCEDURE INFORMATION: Exam: CT Pelvis With Contrast Exam date and time: 06/14/2022 7:46 PM Age: 37 years old Clinical indication: Perianal pain; Additional info: Concern for perirectal abscess TECHNIQUE: Imaging protocol: Computed tomography of the pelvis with contrast. Radiation optimization: All CT scans at this facility use at least one of these dose optimization techniques: automated exposure control; mA and/or kV adjustment per patient size (includes targeted exams where dose is matched to clinical indication); or iterative reconstruction. Contrast material: ISOVUE; Contrast volume: 75 ml; Contrast route: IV; REPORTING DATA: Count of CT and Cardiac NM exams in prior 12 months: This patient has received 0 known CTs and 0 known cardiac nuclear medicine studies in the 12 months prior to the current study. COMPARISON: CT ABDOMEN PELVIS W CON 11/21/2020 4:50 PM FINDINGS: Stomach and bowel: Visualized small bowel and colon are unremarkable. Appendix: No evidence of appendicitis. Intraperitoneal space: Unremarkable. No free air. No significant fluid collection. Lymph nodes: Unremarkable. No enlarged lymph nodes. Urinary bladder: Normal. No mass. Reproductive: Normal as visualized. Bones/joints: Unremarkable. No acute fracture. No dislocation. Soft tissues: Unremarkable. IMPRESSION: No acute findings. If there is ongoing clinical concern, MRI would have greater sensitivity.
--- NOTE | 2022-06-14 20:35 | HMH.EDGENADL ---
Discharge Plan Disposition Patient Disposition: Home, Self-Care Condition: Good Prescriptions Prescriptions: No Action quetiapine 50 mg tablet 50 mg PO DAILY buspirone 10 MG tablet 10 mg PO TID ipratropium-albuterol 3 ML solution for nebulization 3 ml IH QIDP PRN (Reason: Shortness Of Breath) Qty: 30 0RF (DME) nebulizers 1 EACH misc 1 each MC QIDP Qty: 1 0RF omeprazole 20 MG capsule,delayed release(DR/EC) 20 mg PO DAILY Qty: 30 0RF dicyclomine 10 MG capsule 10 mg PO QID PRN (Reason: Cramping) Qty: 12 0RF hydrocortisone 30 GM cream with perineal applicator 30 gm TP BID Qty: 1 0RF famotidine 20 MG tablet 20 mg PO DAILY Qty: 10 0RF Referrals Follow up/Referrals: Quyen Jeffrey [Primary Care Provider] - See instructions Activity Restrictions/Add. Instructions Additional Instructions/Restrictions: Recommend using hemorrhoid cream that has hydrocortisone and phenylephrine and specifically the phenylephrine Clinical Impressions Clinical Impression: External hemorrhoid Instructions Patient Instructions: DI for Hemorrhoids Discharge ED Provider: Sidney Vazquez General Adult HPI General Chief complaint: Skin/Abscess/Foreign Body Stated complaint: Pain in butt/blister Time Seen by Provider: 06/14/22 19:00 Mode of Arrival: Family Vehicle Source of Information: Patient Limitations: No Limitations Description of Symptoms (Recalled from ER Triage Doc. by RN): Pt c/o boil to his anus. States it began to hurt and popped up this morning. Pt attempted to squeeze stuff out but was unsuccessful. States 3 years ago he had a similiar episode and he had to have an I&D in the ER. He also reports nausea for 3 days. History of Present Illness HPI narrative: Patient is a 37-year-old male with past medical history of hemorrhoids who presents with concern for boil. He locates it around his rectum. He says that it started to hurt and this morning he noted that it was quite inflamed. He says that he tried to squeeze things out of it but was unsuccessful. He says that 3 years ago he had similar findings and had to have an I&D in the ER. He says he has been a little bit nauseous for the last couple days as well. Denies any fever or chills. Related Data Home Medications Medication Instructions Recorded Confirmed buspirone 10 mg tablet 10 mg PO TID Depression 11/28/17 08/24/20 quetiapine 50 mg tablet 50 mg PO DAILY Anxiety 08/08/20 08/24/20 Previous Rx's Medication Instructions Recorded dicyclomine 10 mg capsule 10 mg PO QID PRN Cramping #12 caps 11/21/20 omeprazole 20 mg capsule,delayed 20 mg PO DAILY #30 caps 11/21/20 release hydrocortisone 2.5 % topical cream 30 gm TP BID ##1 12/13/20 with perineal applicator ipratropium 0.5 mg-albuterol 3 mg 3 ml IH QIDP PRN Shortness Of 01/17/21 (2.5 mg base)/3 mL nebulization Breath #30 mL soln nebulizers #1 ea 01/17/21 famotidine 20 mg tablet 20 mg PO DAILY #10 tabs 05/16/21 Allergies Allergy/AdvReac Type Severity Reaction Status Date / Time acetaminophen [From Tylenol] AdvReac Verified 08/08/20 13:05 [facility] Disclaimer: The information contained in this section may have been updated after the patient was seen, as this information can be updated by other users. Social History Smoking Status: Current every day smoker alcohol intake: never current occupational status: other Travel in the last 8 weeks: None ROS Obtained: Yes All systems reviewed & no additional complaints except as documented Physical Exam General General appearance: alert and in no apparent distress Head Head exam: atraumatic, normocephalic and normal inspection Eye Eye exam: Present normal appearance and PERRL ENT ENT exam: Present normal exam, mucous membranes moist and normal external ear exam Neck Neck exam: Present normal inspection and trachea midline Chest Chest inspection: Present normal inspection and symmetric ch
[2022-06-14 21:09] VITALS: BP 134/82; PULSE 87; RESP 19; TEMP 36.9; O2SAT 97
== END 2022-06-14 21:10 | disposition home or self-care (01) ==
PROVIDERS: Emergency Provider Student in an Organized Health Care Education/Training Program; PCP Pediatrics
DX: K64.4 Residual hemorrhoidal skin tags (principal)
CPT/HCPCS: 72193; 99283; 99284; Q9967

== ENCOUNTER 2022-08-12 14:38 | Emergency (ER) | payer MEDICAID, SELFPAY ==
[2022-08-12 14:46] VITALS: BP 104/51; PULSE 66; RESP 18; TEMP 36.7; O2SAT 96; BMI 25.8
--- NOTE | 2022-08-12 15:05 | HMH.EDGENADL ---
Discharge Plan Disposition Patient Disposition: Home, Self-Care Prescriptions Prescriptions: New prochlorperazine maleate [Compazine] 10 mg tablet 10 mg PO Q8H PRN (Reason: nausea and vomiting and headache) 7 Days Qty: 20 0RF Rx Instructions: Please take with 800 mg of ibuprofen and 25 mg of Benadryl and expect sedation No Action quetiapine 50 mg tablet 50 mg PO DAILY buspirone 10 MG tablet 10 mg PO TID ipratropium-albuterol 3 ML solution for nebulization 3 ml IH QIDP PRN (Reason: Shortness Of Breath) Qty: 30 0RF (DME) nebulizers 1 EACH misc 1 each MC QIDP Qty: 1 0RF omeprazole 20 MG capsule,delayed release(DR/EC) 20 mg PO DAILY Qty: 30 0RF dicyclomine 10 MG capsule 10 mg PO QID PRN (Reason: Cramping) Qty: 12 0RF hydrocortisone 30 GM cream with perineal applicator 30 gm TP BID Qty: 1 0RF famotidine 20 MG tablet 20 mg PO DAILY Qty: 10 0RF Referrals Follow up/Referrals: Provider,Referral, MD [Primary Care Provider] - See instructions Activity Restrictions/Add. Instructions Additional Instructions/Restrictions: Follow-up with primary care doctor within 1 week and return to the emergency department with any worsening symptoms. Clinical Impressions Clinical Impression: Headache, Nausea & vomiting Instructions Patient Instructions: DI for Acute Abdominal Pain Discharge ED Provider: Glenda Fierro General Adult HPI General Chief complaint: Abdominal Pain Stated complaint: Weakness, abd pain, headache, nausea, vomiting Time Seen by Provider: 08/12/22 15:05 Mode of Arrival: Ambulatory Source of Information: Patient Limitations: No Limitations Description of Symptoms (Recalled from ER Triage Doc. by RN): 37 yo M presents to ED for headache, abdominal pain, nausea, vomitting, weakness ongoing for 2 days History of Present Illness HPI narrative: Patient is a 37-year-old male who is a poor historian presenting today with abdominal discomfort nausea and headache for the last 2 days. States he intermittently has headaches smokes marijuana daily for a long period of time but states that he does not get significantly better with hot showers and he has chronic GI issues that no doctor can figure out . Patient states that he does not have any significant abdominal pain but has had headaches associated with nausea no diarrhea no fevers or chills he has had a cough for a few days which has been very mild in nature. States that his headache is similar to headaches has had in the past. No thunderclap component to this or other neurologic symptoms associate with this. No neck stiffness. Related Data Home Medications Medication Instructions Recorded Confirmed buspirone 10 mg tablet 10 mg PO TID Depression 18 08/24/20 quetiapine 50 mg tablet 50 mg PO DAILY Anxiety 08/08/20 08/24/20 Previous Rx's Medication Instructions Recorded dicyclomine 10 mg capsule 10 mg PO QID PRN Cramping #12 caps 11/21/20 omeprazole 20 mg capsule,delayed 20 mg PO DAILY #30 caps 11/21/20 release hydrocortisone 2.5 % topical cream 30 gm TP BID ##1 12/13/20 with perineal applicator ipratropium 0.5 mg-albuterol 3 mg 3 ml IH QIDP PRN Shortness Of 01/17/21 (2.5 mg base)/3 mL nebulization Breath #30 mL soln nebulizers #1 ea 01/17/21 famotidine 20 mg tablet 20 mg PO DAILY #10 tabs 05/16/21 prochlorperazine maleate 10 mg 10 mg PO Q8H PRN nausea and 08/12/22 tablet (Compazine) vomiting and headache 7 days #20 tabs Allergies Allergy/AdvReac Type Severity Reaction Status Date / Time acetaminophen [From Tylenol] AdvReac Verified 08/08/20 13:05 [facility] Disclaimer: The information contained in this section may have been updated after the patient was seen, as this information can be updated by other users. Social History Smoking Status: Current every day smoker alcohol intake: never current occupational status: other Travel in the last 8 weeks: None ROS
--- NOTE | 2022-08-12 15:17 | PC.NURSE ---
NOTHING NEEDED AT THIS TIME, TAP ARRIAGA AT BS
[2022-08-12 15:34] LABS: Basophils % 0.2 % (0.1-2.0); Eosinophils % 0.5 % (0.1-12.0); Hematocrit 44.2 % (42.0-52.0); Lymphocytes # 1.4 K/mm3 (0.7-4.5); Lymphocytes % 18.8 % (10-50); Mean Corpuscular HGB Conc 33.9 g/dL (31.8-35.4); Mean Corpuscular Hemoglobin 30.4 pg (27.0-31.2); Mean Corpuscular Volume 89.5 fl (80-94); Mean Platelet Volume 7.2 fl (7.4-10.4); Monocytes # 0.3 K/mm3 (0.1-1.0); Monocytes % 4.3 % (1.7-9.3); Neutrophils # 5.8 K/mm3 (1.8-7.8); Neutrophils % 76.2 % (37.0-80.0); Platelet Count 228 K/mm3 (142-424); Red Blood Count 4.94 M/mm3 (4.60-6.20); Red Cell Distribution Width 13.1 % (11.5-17.5); White Blood Count 7.6 K/mm3 (4.8-10.8)
[2022-08-12 15:39] LABS: Chloride 101 mmol/L (98-107); Potassium 4.5 mmoL/L (3.5-5.1); Sodium 138 mmol/L (136-145)
[2022-08-12 15:41] LABS: Blood Urea Nitrogen 9 mg/dl (9-20); Creatinine Clearance Estimated 147 mL/min (50-200); Estimated Glomerular Filt Rate 109 ml/min (>60); GFR (African American) 132 ML/MIN (>60)
[2022-08-12 15:42] LABS: Alanine Aminotransferase 26 U/L (12-78); Albumin Level 4.3 g/dl (3.5-5.0); Albumin/Globulin Ratio 1.4 (1.1-1.8); Alkaline Phosphatase 69 U/L (38-126); Anion Gap 13.5 mEq/L (5-15); Aspartate Amino Transferase 33 U/L (17-59); Calcium 8.9 mg/dl (8.4-10.2); Carbon Dioxide 28 mmol/L (22.0-30.0); Glucose 105 mg/dl (74-100); Lipase 62 U/L (23-300); Total Protein,Serum 7.3 g/dl (6.3-8.2)
[2022-08-12 16:28] VITALS: BP 106/43; PULSE 65; O2SAT 99
--- NOTE | 2022-08-12 16:31 | PC.NURSE ---
rounded on pt at this time. pt states that his pain feels better.
[2022-08-12 17:05] VITALS: BP 106/43; PULSE 65; RESP 18; TEMP 36.7; O2SAT 98
== END 2022-08-12 17:07 | disposition home or self-care (01) ==
PROVIDERS: Emergency Provider Student in an Organized Health Care Education/Training Program
DX: R51.9 Headache, unspecified (principal); R11.2 Nausea with vomiting, unspecified; R53.1 Weakness; F17.200 Nicotine dependence, unspecified, uncomplicated; F12.90 Cannabis use, unspecified, uncomplicated
CPT/HCPCS: 80053; 83690; 85025; 96361; 96374; 96375; 99284

== ENCOUNTER 2022-11-04 17:50 | Emergency (ER) | payer MEDICARE, MEDICAID, SELFPAY ==
[2022-11-04 17:55] VITALS: BP 114/74; PULSE 70; RESP 20; TEMP 37.3; O2SAT 98; BMI 22.9
--- NOTE | 2022-11-04 18:17 | EXP.UTC ---
Discharge Plan Disposition Patient Disposition: Home, Self-Care Condition: Good Prescriptions Prescriptions: No Action quetiapine 50 mg tablet 50 mg PO DAILY buspirone 10 MG tablet 10 mg PO TID ipratropium-albuterol 3 ML solution for nebulization 3 ml IH QIDP PRN (Reason: Shortness Of Breath) Qty: 30 0RF (DME) nebulizers 1 EACH misc 1 each MC QIDP Qty: 1 0RF omeprazole 20 MG capsule,delayed release(DR/EC) 20 mg PO DAILY Qty: 30 0RF dicyclomine 10 MG capsule 10 mg PO QID PRN (Reason: Cramping) Qty: 12 0RF hydrocortisone 30 GM cream with perineal applicator 30 gm TP BID Qty: 1 0RF famotidine 20 MG tablet 20 mg PO DAILY Qty: 10 0RF prochlorperazine maleate [Compazine] 10 mg tablet 10 mg PO Q8H PRN (Reason: nausea and vomiting and headache) 7 Days Qty: 20 0RF Rx Instructions: Please take with 800 mg of ibuprofen and 25 mg of Benadryl and expect sedation Referrals Follow up/Referrals: Provider,Referral, MD [Primary Care Provider] - See instructions Activity Restrictions/Add. Instructions Additional Instructions/Restrictions: *Monitor Temp, Over the counter Motrin or Tylenol as directed/as needed Tylenol every 4 hours and Motrin every 6 hours (as long as your family doctor has told you that you can take it) for fever or pain. and straight to ER if unable to lower temp less than 101.0 after medication given *Warm salt water gargles may help to soothe the throat *Throat Lozenges? *Warm fluids like tea with honey may help to soothe the throat? *Sleep elevated *Humidifier/Vaporizer Follow up IMMEDIATELY for new or worsening symptoms or no Noticeable improvement over the next 48-72 hours. 911 for difficulty breathing or swallowing You were tested for today for COVID19 your test result should be back in the next 24 You may check your results on the [facility] Portal Clinical Impressions Clinical Impression: Exposure to COVID-19 virus Stand Alone Forms Stand Alone Forms: Work/School Release Instructions Patient Instructions: How to Care for Someone with COVID-19, DI for COVID-19 (Suspected or Confirmed ) Discharge ED Provider: Racheal Rodas [facility] HPI General Stated complaint: expose to covid fabián Mode of Arrival: Ambulatory Source of Information: Patient Limitations: No Limitations Time Seen by Provider: 11/04/22 18:17 Description of Symptoms (Recalled from Triage Doc. by RN): PATIENT REQUESTING COVID TEST D/T EXPOSURE HEENT Symptoms (Recalled from RN notes): No Resp Symptoms (Recalled from RN notes): No Skin Symptoms (Recalled from RN notes): No MS Symptoms (Recalled from RN notes): No Functional Status (Recalled from RN notes): WNL History of Present Illness Provider Complaint: Patient states that he was recently around someone that found out today they have COVID States that he has been having nasal congestion so he came in to get checked for COVID Related Data Home Medications Medication Instructions Recorded Confirmed buspirone 10 mg tablet 10 mg PO TID Depression 11/28/17 08/24/20 quetiapine 50 mg tablet 50 mg PO DAILY Anxiety 08/08/20 08/24/20 Previous Rx's Medication Instructions Recorded dicyclomine 10 mg capsule 10 mg PO QID PRN Cramping #12 caps 11/21/20 omeprazole 20 mg capsule,delayed 20 mg PO DAILY #30 caps 11/21/20 release hydrocortisone 2.5 % topical cream 30 gm TP BID ##1 12/13/20 with perineal applicator ipratropium 0.5 mg-albuterol 3 mg 3 ml IH QIDP PRN Shortness Of 01/17/21 (2.5 mg base)/3 mL nebulization Breath #30 mL soln nebulizers #1 ea 01/17/21 famotidine 20 mg tablet 20 mg PO DAILY #10 tabs 05/16/21 prochlorperazine maleate 10 mg 10 mg PO Q8H PRN nausea and 08/12/22 tablet (Compazine) vomiting and headache 7 days #20 tabs Allergies Allergy/AdvReac Type Severity Reaction Status Date / Time acetaminophen [From Tylenol] AdvReac Verified 08/08/20 13:05
[2022-11-04 18:31] VITALS: BP 114/74; PULSE 70; RESP 20; TEMP 37.3; O2SAT 98
== END 2022-11-04 18:33 | disposition home or self-care (01) ==
PROVIDERS: Emergency Provider Nurse Practitioner
DX: R09.81 Nasal congestion (principal); F17.210 Nicotine dependence, cigarettes, uncomplicated; Z20.822 Contact with and (suspected) exposure to COVID-19
CPT/HCPCS: 99212; 99213; G0463

== ENCOUNTER 2022-11-15 10:01 | Emergency (ER) | payer MEDICARE, MEDICAID, SELFPAY ==
[2022-11-15 10:09] VITALS: BP 113/62; PULSE 79; RESP 18; TEMP 36.6; O2SAT 99; BMI 26.6
--- NOTE | 2022-11-15 10:13 | XR_ITS ---
PROCEDURE INFORMATION: Exam: XR Left Ankle Exam date and time: 11/15/2022 10:24 AM Age: 37 years old Clinical indication: Left; Patient HX: Foot/ankle pain after jumping off 4 ft surface; Additional info: Jumped off a 4ft surface TECHNIQUE: Imaging protocol: Radiologic exam of the left ankle. Views: 3 or more views. Total images: 3 COMPARISON: CR XR FOOT LT MIN 3V 11/15/2022 10:22 AM FINDINGS: Bones/joints: No evidence of acute fracture or dislocation. Calcaneal spurs are present. Soft tissues: Soft tissues are within normal limits. IMPRESSION: No evidence of acute fracture or dislocation.
--- NOTE | 2022-11-15 10:13 | XR_ITS ---
PROCEDURE INFORMATION: Exam: XR Left Foot Exam date and time: 11/15/2022 10:22 AM Age: 37 years old Clinical indication: Left; Patient HX: Foot/ankle pain after jumping off 4 ft surface; Additional info: Jumped off a 4ft surface TECHNIQUE: Imaging protocol: Radiologic exam of the left foot. Views: 3 or more views. Total images: 3 COMPARISON: No relevant prior studies available. FINDINGS: Bones/joints: No evidence of acute fracture or dislocation. Soft tissues: Soft tissues are within normal limits. IMPRESSION: No evidence of acute fracture or dislocation.
--- NOTE | 2022-11-15 10:50 | HMH.EDGENADL ---
Discharge Plan Disposition Patient Disposition: Home, Self-Care Condition: Good Prescriptions Prescriptions: No Action quetiapine 50 mg tablet 50 mg PO DAILY buspirone 10 MG tablet 10 mg PO TID ipratropium-albuterol 3 ML solution for nebulization 3 ml IH QIDP PRN (Reason: Shortness Of Breath) Qty: 30 0RF (DME) nebulizers 1 EACH misc 1 each MC QIDP Qty: 1 0RF omeprazole 20 MG capsule,delayed release(DR/EC) 20 mg PO DAILY Qty: 30 0RF dicyclomine 10 MG capsule 10 mg PO QID PRN (Reason: Cramping) Qty: 12 0RF hydrocortisone 30 GM cream with perineal applicator 30 gm TP BID Qty: 1 0RF famotidine 20 MG tablet 20 mg PO DAILY Qty: 10 0RF prochlorperazine maleate [Compazine] 10 mg tablet 10 mg PO Q8H PRN (Reason: nausea and vomiting and headache) 7 Days Qty: 20 0RF Rx Instructions: Please take with 800 mg of ibuprofen and 25 mg of Benadryl and expect sedation Referrals Follow up/Referrals: Harry Ballesteros DO [Staff Physician] - See instructions Willard Diamond MD [Emergency Provider] - See instructions Provider,MD Vivian [Primary Care Provider] - See instructions Activity Restrictions/Add. Instructions Additional Instructions/Restrictions: There is no fracture in your foot or ankle. You have been provided crutches to help you get around. Rest the foot until you are able to walk on it without pain. Take Tylenol and ibuprofen as needed for pain, do not exceed the recommended doses on the bottles. You have been provided referral to orthopedics. Please make an appointment with your primary care physician in 2 to 3 days for reevaluation. Return to the emergency department with new or worsening symptoms. Clinical Impressions Clinical Impression: Pain of left heel Discharge ED Provider: Willard Diamond General Adult HPI General Chief complaint: PAIN Stated complaint: AO 11/14, left foot pain Time Seen by Provider: 11/15/22 10:37 Mode of Arrival: Wheelchair Source of Information: Patient Limitations: No Limitations Description of Symptoms (Recalled from ER Triage Doc. by RN): pt c/o left foot/ankle pain. pt states he jumped off a box approx 4ft onto concrete floor and woke up this morning with throbbing pain. pt denies any previous injury to his extremity. History of Present Illness HPI narrative: This 37-year-old male who takes Seroquel daily presents to the emergency department with concerns of left heel pain. Patient states he jumped off a box approximately 36 inches high yesterday and landed hard on his left heel. He had initial pain but was able to ambulate on the foot. He states he went to bed shortly after the incident, and upon waking up this morning he had increased pain and is unable to put pressure on the heel. He describes pain all the way around the heel. No other injury sustained in the accident, no back pain, no numbness, no tingling. Related Data Home Medications Medication Instructions Recorded Confirmed buspirone 10 mg tablet 10 mg PO TID Depression 11/28/17 08/24/20 quetiapine 50 mg tablet 50 mg PO DAILY Anxiety 08/08/20 08/24/20 Previous Rx's Medication Instructions Recorded dicyclomine 10 mg capsule 10 mg PO QID PRN Cramping #12 caps 11/21/20 omeprazole 20 mg capsule,delayed 20 mg PO DAILY #30 caps 11/21/20 release hydrocortisone 2.5 % topical cream 30 gm TP BID ##1 12/13/20 with perineal applicator ipratropium 0.5 mg-albuterol 3 mg 3 ml IH QIDP PRN Shortness Of 01/17/21 (2.5 mg base)/3 mL nebulization Breath #30 mL soln nebulizers #1 ea 01/17/21 famotidine 20 mg tablet 20 mg PO DAILY #10 tabs 05/16/21 prochlorperazine maleate 10 mg 10 mg PO Q8H PRN nausea and 08/12/22 tablet (Compazine) vomiting and headache 7 days #20 tabs Allergies Allergy/AdvReac Type Severity Reaction Status Date / Time acetaminophen [From Tylenol] AdvReac Verified 08/08/20 13:05 [facility] Disclaimer: The information contained in this se
[2022-11-15 12:25] VITALS: BP 133/96; PULSE 87; RESP 18; TEMP 36.6; O2SAT 100
--- NOTE | 2022-11-17 02:17 | PC.NURSE ---
chart accessed for demographics for ortho papers
== END 2022-11-15 12:26 | disposition home or self-care (01) ==
PROVIDERS: Emergency Provider Emergency Medicine
DX: M25.572 Pain in left ankle and joints of left foot (principal); F17.200 Nicotine dependence, unspecified, uncomplicated; X50.1XXA Overexertion from prolonged static or awkward postures, initial encounter
CPT/HCPCS: 73610; 73630; 99283

== ENCOUNTER → 2023-03-04 13:09 | Outpatient (CLI) | payer MEDICARE, MEDICAID, SELFPAY ==
--- NOTE | 2023-03-04 13:17 | XR_ITS ---
FINAL REPORT CLINICAL HISTORY: Neck and back pain. no recent trauma COMPARISON: None FINDINGS: CERVICAL SPINE 5 views were obtained. There is no acute fracture. Vertebrae are normal in height. There is no malalignment. THORACIC SPINE Two views were obtained. There is no acute fracture. Vertebrae are normal in height. There is no malalignment. IMPRESSION: No acute process. Reviewed, Interpreted and Dictated by Estevan Bernardo MD Transcribed by Reny Osorio Authenticated and [facility]
== END ==
PROVIDERS: PCP Nurse Practitioner Family; Visit Provider Nurse Practitioner Family
DX: M54.2 Cervicalgia (principal)
CPT/HCPCS: 72084

== ENCOUNTER 2023-04-06 09:17 | Emergency (ER) | payer MEDICARE, MEDICAID, SELFPAY ==
--- NOTE | 2023-04-06 09:29 | EXP.UTC ---
Discharge Plan Disposition Patient Disposition: Home, Self-Care Condition: Good Prescriptions Prescriptions: New benzonatate [benzonatate] 100 mg capsule 100 mg PO TIDP PRN (Reason: Cough) Qty: 30 0RF oseltamivir [Tamiflu] 75 mg capsule 75 mg PO BID Qty: 10 0RF ibuprofen [ibuprofen] 600 mg tablet 600 mg PO Q6HP PRN (Reason: Mild Pain) Qty: 30 0RF No Action quetiapine 50 mg tablet 50 mg PO DAILY buspirone 10 MG tablet 10 mg PO TID ipratropium-albuterol 3 ML solution for nebulization 3 ml IH QIDP PRN (Reason: Shortness Of Breath) Qty: 30 0RF (DME) nebulizers 1 EACH misc 1 each MC QIDP Qty: 1 0RF dicyclomine 10 MG capsule 10 mg PO QID PRN (Reason: Cramping) Qty: 12 0RF hydrocortisone 30 GM cream with perineal applicator 30 gm TP BID Qty: 1 0RF famotidine 20 MG tablet 20 mg PO DAILY Qty: 10 0RF prochlorperazine maleate [Compazine] 10 mg tablet 10 mg PO Q8H PRN (Reason: nausea and vomiting and headache) 7 Days Qty: 20 0RF Rx Instructions: Please take with 800 mg of ibuprofen and 25 mg of Benadryl and expect sedation venlafaxine 75 mg capsule,extended release 24hr 75 mg PO DAILY Patient Comments: TAKE 1 CAPSULE BY MOUTH EVERY DAY WITH FOOD Referrals Follow up/Referrals: Provider,Referral, MD [Primary Care Provider] - See instructions Activity Restrictions/Add. Instructions Additional Instructions/Restrictions: Drink plenty of fluids. Take tylenol or ibuprofen for pain or fever. Take the medications as directed. Follow up with your regular doctor. GO TO THE ER FOR ANY WORSENING SYMPTOMS Clinical Impressions Clinical Impression: Influenza B Stand Alone Forms Stand Alone Forms: Work/School Release Instructions Patient Instructions: DI for Influenza -- Adult, Ibuprofen, Oseltamivir Discharge ED Provider: David Payne [facility] General Stated complaint: cough,fever, body chills Time Seen by Provider: 04/06/23 09:29 History of Present Illness Provider Complaint: He states that for the past 2 days he has had fever/chills/body aches, cough and congestion. Related Data Home Medications Medication Instructions Recorded Confirmed buspirone 10 mg tablet 10 mg PO TID Depression 11/28/17 04/06/23 quetiapine 50 mg tablet 50 mg PO DAILY Anxiety 08/08/20 08/24/20 venlafaxine 75 mg capsule,extended 75 mg PO DAILY 04/06/23 04/06/23 release 24 hr Previous Rx's Medication Instructions Recorded dicyclomine 10 mg capsule 10 mg PO QID PRN Cramping #12 caps 11/21/20 hydrocortisone 2.5 % topical cream 30 gm TP BID ##1 12/13/20 with perineal applicator ipratropium 0.5 mg-albuterol 3 mg 3 ml IH QIDP PRN Shortness Of 01/17/21 (2.5 mg base)/3 mL nebulization Breath #30 mL soln nebulizers #1 ea 01/17/21 famotidine 20 mg tablet 20 mg PO DAILY #10 tabs 05/16/21 prochlorperazine maleate 10 mg 10 mg PO Q8H PRN nausea and 08/12/22 tablet (Compazine) vomiting and headache 7 days #20 tabs benzonatate 100 mg capsule 100 mg PO TIDP PRN Cough #30 caps 04/06/23 ibuprofen 600 mg tablet 600 mg PO Q6HP PRN Mild Pain #30 04/06/23 tabs oseltamivir 75 mg capsule (Tamiflu) 75 mg PO BID #10 caps 04/06/23 Allergies Allergy/AdvReac Type Severity Reaction Status Date / Time acetaminophen [From Tylenol] AdvReac Verified 04/06/23 09:40 [facility] Disclaimer: The information contained in this section may have been updated after the patient was seen, as this information can be updated by other users. Social History Smoking Status: Current every day smoker alcohol intake: never current occupational status: other Travel in the last 8 weeks: None ROS Obtained: Yes All systems reviewed & no additional complaints except as documented Constitutional Constitutional: Reports chills and Reports fever(s) Eyes Eyes: Denies eye discharge ENT Ears, Nose, Mouth, and Throat: Reports as per HPI Cardiovascular Cardiovascular: Denies chest pain Respiratory Respiratory: Denies chest congestion and Reports cough Gastrointestinal Gastrointestingal: Reports nausea; Denies abdominal pain, constipation, cramping, diarrhea or vomiting Musculoskeletal Musculoskeletal: Denies arthralgias Integumentary/Breasts Skin/Breast: Denies rash Neurologic Neurologic: Denies paresthesias Physical Exam General General appearance: alert and in no apparent distress Head Head exam: atraumatic, normocephalic and normal inspection Eye Eye exam: Present normal appearance, PERRL and EOMI ENT ENT exam: Present normal exam, normal oropharynx, mucous membranes moist, TM's normal bilaterally and normal external ear exam Neck Neck exam: Present normal inspection, full ROM and trachea midline; Absent meningismus or lymphadenopathy Chest Chest inspection: Present normal inspection and symmetric chest wall rise; Absent tenderness Respiratory Respiratory exam: Present normal lung sounds bilaterally; Absent respiratory distress Cardiovascular Cardiovascular exam: Present regular rate and normal rhythm; Absent JVD Abdominal Exam Abdominal exam: Present soft and normal bowel sounds; Absent distention, tenderness or guarding Extremities Exam Extremities exam: Present normal inspection, full ROM and normal capillary refill; Absent calf tenderness Back Exam Back exam: Present normal inspection; Absent tenderness Neurological Exam Neurological exam: Present alert and oriented X3 Psychiatric Psychiatric exam: Present normal affect and normal mood Skin Skin exam: Present warm, dry, intact and normal color Lymphatic Lymphatic Findings: no adenopathy Medical Decision Making Medical Records Medical records reviewed: No I reviewed the patient's medical records. Jaylen Inquiry Pt receiving controlled substance: No Lab Data Lab results reviewed: Yes I reviewed the patient's lab results. Orders (Tests/Meds): ORDERS Category Date Time Status Covid-19 Nasal PCR ([facility]) Routine Lab 04/06/23 09:27 Ordered
[2023-04-06 09:30] VITALS: BP 117/70; PULSE 94; RESP 18; TEMP 37.3; O2SAT 97; BMI 25.8
[2023-04-06 09:45] LABS: UTC Influenza A Antigen Negative (Negative); UTC Influenza B Antigen Positive (Negative)
[2023-04-06 09:46] LABS: UTC Strep Screen (Rapid) Negative (Negative)
[2023-04-06 10:05] VITALS: BP 117/70; PULSE 94; RESP 18; TEMP 37.3; O2SAT 97
== END 2023-04-06 10:04 | disposition home or self-care (01) ==
PROVIDERS: Emergency Provider Nurse Practitioner Family
DX: U07.1 COVID-19 (principal); J10.1 Influenza due to other identified influenza virus with other respiratory manifestations; R50.9 Fever, unspecified; R05.9 Cough, unspecified; R09.81 Nasal congestion; M79.18 Myalgia, other site; F17.210 Nicotine dependence, cigarettes, uncomplicated
CPT/HCPCS: 87635; 87804; 87880; 99212; 99214; G0463

== ENCOUNTER 2023-05-31 12:45 | Emergency (ER) | payer MEDICARE, MEDICAID, SELFPAY ==
[2023-05-31 13:00] VITALS: BP 120/69; PULSE 75; RESP 18; TEMP 36.6; O2SAT 100; BMI 25.8
--- NOTE | 2023-05-31 13:03 | XR_ITS ---
FINAL REPORT CLINICAL HISTORY: jumped off a box, right ankle pain COMPARISON: None FINDINGS: RIGHT ANKLE: Three views of the right ankle were obtained. There is no acute fracture or dislocation. The joint spaces and mortise are intact. There is no soft tissue abnormality. IMPRESSION: No acute bony abnormality. Reviewed, Interpreted and Dictated by Leo Mccabe III, MD Transcribed by Reny Osorio Authenticated and [facility]
--- NOTE | 2023-05-31 13:03 | XR_ITS ---
FINAL REPORT CLINICAL HISTORY: jumped off a box. Right heel pain COMPARISON: None FINDINGS: RIGHT FOOT: Three views of the right foot were obtained. There is no acute fracture or dislocation. The joint spaces are intact. There is no soft tissue abnormality. IMPRESSION: No acute bony abnormality. Reviewed, Interpreted and Dictated by Leo Mccabe III, MD Transcribed by Reny Osorio Authenticated and [facility]
--- NOTE | 2023-05-31 13:07 | EXP.UTC ---
Discharge Plan Disposition Patient Disposition: Home, Self-Care Condition: Good Prescriptions Prescriptions: New ibuprofen [IBU] 800 mg tablet 800 mg PO Q8HP PRN (Reason: Moderate Pain) Qty: 30 0RF No Action quetiapine 50 mg tablet 50 mg PO DAILY buspirone 10 MG tablet 10 mg PO TID ipratropium-albuterol 3 ML solution for nebulization 3 ml IH QIDP PRN (Reason: Shortness Of Breath) Qty: 30 0RF (DME) nebulizers 1 EACH misc 1 each QIDP Qty: 1 0RF venlafaxine 75 mg capsule,extended release 24hr 75 mg PO DAILY Patient Comments: TAKE 1 CAPSULE BY MOUTH EVERY DAY WITH FOOD Referrals Follow up/Referrals: Provider,Referral, MD [Primary Care Provider] - See instructions Kami Song DPM [Staff Physician] - See instructions Activity Restrictions/Add. Instructions Additional Instructions/Restrictions: Rest the extremity, apply ice for 15 minutes as tolerated three or four times per day, Elevate the extremity as tolerated while you are resting. Take ibuprofen for pain. I sent in a prescription to your pharmacy. Follow up with Dr. Song (podiatry). I put in a referral but you need to call her office and schedule an appointment. Follow up with your regular doctor. GO TO THE ER FOR ANY WORSENING SYMPTOMS Clinical Impressions Clinical Impression: Pain of right heel, Pain in right ankle Stand Alone Forms Stand Alone Forms: Work/School Release Instructions Patient Instructions: DI for Ankle Pain, DI for Foot Pain Discharge ED Provider: David Payne [facility] General Stated complaint: AO Pain in R heel and ankle area Time Seen by Provider: 05/31/23 13:07 History of Present Illness Provider Complaint: He states that he has had right heel and right ankle pain since he jumped off a 36 inch high box earlier today. He states that he came down on that heel. He denies any other injury. Related Data Home Medications Medication Instructions Recorded Confirmed buspirone 10 mg tablet 10 mg PO TID Depression 11/28/17 05/31/23 quetiapine 50 mg tablet 50 mg PO DAILY Anxiety 08/08/20 05/31/23 venlafaxine 75 mg capsule,extended 75 mg PO DAILY 04/06/23 05/31/23 release 24 hr Previous Rx's Medication Instructions Recorded ipratropium 0.5 mg-albuterol 3 mg 3 ml IH QIDP PRN Shortness Of 01/17/21 (2.5 mg base)/3 mL nebulization Breath #30 mL soln nebulizers #1 ea 01/17/21 ibuprofen 800 mg tablet (IBU) 800 mg PO Q8HP PRN Moderate Pain 05/31/23 #30 tabs Allergies Allergy/AdvReac Type Severity Reaction Status Date / Time acetaminophen [From Tylenol] AdvReac Verified 05/31/23 13:07 [facility] Disclaimer: The information contained in this section may have been updated after the patient was seen, as this information can be updated by other users. Social History Smoking Status: Current every day smoker alcohol intake: never current occupational status: other Travel in the last 8 weeks: None ROS Obtained: Yes All systems reviewed & no additional complaints except as documented Constitutional Constitutional: Denies chills and Denies fever(s) Eyes Eyes: Denies eye discharge ENT Ears, Nose, Mouth, and Throat: Denies dizziness, Denies otalgia and Denies sore throat Cardiovascular Cardiovascular: Denies chest pain Respiratory Respiratory: Denies shortness of breath, Denies chest congestion, Denies cough, Denies stridor and Denies wheezing Gastrointestinal Gastrointestingal: Denies nausea or vomiting Musculoskeletal Musculoskeletal: Reports as per HPI Integumentary/Breasts Skin/Breast: Denies redness, Denies rash and Denies wounds Neurologic Neurologic: Denies dizziness and Denies paresthesias Allergic/Immunologic Allergic/Immunologic: Denies wheezing Physical Exam General General appearance: alert and in no apparent distress Head Head exam: atraumatic, normocephalic and normal inspection Eye
[2023-05-31 14:43] VITALS: BP 120/69; PULSE 75; RESP 18; TEMP 36.6; O2SAT 100
== END 2023-05-31 14:43 | disposition home or self-care (01) ==
PROVIDERS: Emergency Provider Nurse Practitioner Family
DX: M25.571 Pain in right ankle and joints of right foot (principal); W17.89XA Other fall from one level to another, initial encounter; F17.200 Nicotine dependence, unspecified, uncomplicated
CPT/HCPCS: 73610; 73630; 99212; 99214; G0463

== ENCOUNTER 2023-10-14 16:08 | Emergency (ER) | payer MEDICARE, MEDICAID, SELFPAY ==
[2023-10-14 16:10] VITALS: BP 114/83; PULSE 80; RESP 18; TEMP 37.2; O2SAT 99; BMI 26.6
--- NOTE | 2023-10-14 16:27 | PC.NURSE ---
dr terry at bedside
--- NOTE | 2023-10-14 16:36 | HMH.EDGENADL ---
Discharge Plan Disposition Patient Disposition: Home, Self-Care Condition: Good Prescriptions Prescriptions: New hydrocortisone acetate [Anusol-HC] 25 mg suppository 25 mg VA HS 21 Days Qty: 24 0RF polyethylene glycol 3350 [Miralax] 17 gram/dose powder 17 g PO DAILY Qty: 510 0RF No Action quetiapine 50 mg tablet 50 mg PO DAILY buspirone 10 MG tablet 10 mg PO TID ipratropium-albuterol 3 ML solution for nebulization 3 ml IH QIDP PRN (Reason: Shortness Of Breath) Qty: 30 0RF (DME) nebulizers 1 EACH misc 1 each MC QIDP Qty: 1 0RF ibuprofen [IBU] 800 mg tablet 800 mg PO Q8HP PRN (Reason: Moderate Pain) Qty: 30 0RF venlafaxine 75 mg capsule,extended release 24hr 75 mg PO DAILY Patient Comments: TAKE 1 CAPSULE BY MOUTH EVERY DAY WITH FOOD Referrals Follow up/Referrals: Leo White MD [Staff Physician] - See instructions Provider,MD Vivian [Primary Care Provider] - See instructions Yvan Head MD [Staff Physician] - See instructions Activity Restrictions/Add. Instructions Additional Instructions/Restrictions: You were evaluated in the emergency department today. Please machine operator picker your prescriptions at the pharmacy and use them as prescribed. Follow-up with general surgery if you have persistent symptoms despite these medications. Return to the emergency department for new or worsening symptoms. Clinical Impressions Clinical Impression: Hemorrhoids Instructions Patient Instructions: DI for Hemorrhoids Print Language Print Language: Gambian Discharge ED Provider: Mariluz Rivas General Adult HPI General Chief complaint: Skin/Abscess/Foreign Body Stated complaint: two bumps on buttocks swollen and painful Time Seen by Provider: 10/14/23 16:13 Mode of Arrival: Ambulatory Limitations: No Limitations Description of Symptoms (Recalled from ER Triage Doc. by RN): PT REPORTS 2 BUMPS WHERE POOP COMES OUT X 2 DAYS. DENIES RECTAL BLEEDING History of Present Illness HPI narrative: This patient is a 38-year-old male who denies significant past medical history presenting to the emergency department for evaluation with concern for 2 bumps where his poop comes out. He notes that this has been going on for a few days. He states that he had in the past usually they go away on their own. No fevers, chills, systemic symptoms, lower abdominal pain, rectal bleeding, or other concerns noted. Related Data Home Medications ?Medication ?Instructions ?Recorded ?Confirmed buspirone 10 mg tablet 10 mg PO TID Depression 11/28/17 05/31/23 quetiapine 50 mg tablet 50 mg PO DAILY Anxiety 08/08/20 05/31/23 venlafaxine 75 mg capsule,extended 75 mg PO DAILY 04/06/23 05/31/23 release 24 hr Previous Rx's ?Medication ?Instructions ?Recorded ipratropium 0.5 mg-albuterol 3 mg 3 ml IH QIDP PRN Shortness Of 01/17/21 (2.5 mg base)/3 mL nebulization Breath #30 mL soln nebulizers #1 ea 01/17/21 ibuprofen 800 mg tablet (IBU) 800 mg PO Q8HP PRN Moderate Pain 05/31/23 #30 tabs hydrocortisone acetate 25 mg 25 mg VA HS 3 weeks #24 ea 10/14/23 rectal suppository (Anusol-HC) polyethylene glycol 3350 17 17 g PO DAILY #510 grams 10/14/23 gram/dose oral powder (Miralax) Allergies Allergy/AdvReac Type Severity Reaction Status Date / Time acetaminophen [From Tylenol] AdvReac Verified 05/31/23 13:07 [facility] Disclaimer: The information contained in this section may have been updated after the patient was seen, as this information can be updated by other users. Social History Smoking Status: Current every day smoker alcohol intake: never current occupational status: other Travel in the last 8 weeks: None ROS Obtained: Yes All systems reviewed & no additional complaints except as documented Physical Exam General General appearance: alert and in no apparent distress Head Head exam: atraumatic and normoc
[2023-10-14 16:58] VITALS: BP 114/83; PULSE 80; RESP 18; TEMP 37.2; O2SAT 99
== END 2023-10-14 17:00 | disposition home or self-care (01) ==
PROVIDERS: Emergency Provider Emergency Medicine
DX: K64.9 Unspecified hemorrhoids (principal)
CPT/HCPCS: 99283